=== PATIENT | female | born 1960 | race Caucasian/White ===

== ENCOUNTER 2024-08-30 21:39 | Emergency (ER) | payer MEDICARE, BC, SELFPAY ==
--- NOTE | ~2024-08-30 | CT_ITS ---
CT of the Abdomen and Pelvis: Indication: Abdominal pain Technique: 2.5 mm axial scans were obtained through the abdomen and pelvis following intravenous adm inistration of 100 cc of Omnipaque 350. Dose reduction technique was used on this scan by utilizing a utomated exposure control and iterative reconstruction technique. The dose-length product (DLP) was 8 29.70 mGy-cm. Findings: Scans through the lung bases are unremarkable. The liver, spleen, pancreas, adrenals and kidneys are within normal limits. Gallstones are present wi thin distended gallbladder with mild gallbladder wall thickening. No evidence of aortic aneurysm. No lymphadenopathy. No bowel obstruction or bowel wall thickening. There is no evidence to suggest acute appendicitis. Images through the pelvis were performed. Urinary bladder unremarkable. No pelvic mass seen. No ascit es. Impression: Cholelithiasis. Associated gallbladder wall thickening is suspicious for acute cholecystitis. Correla te clinically. Consider HIDA scan as indicated. Reviewed, dictated and finalized at location . Impression: Cholelithiasis. Associated gallbladder wall thickening is suspicious for acute cholecystitis. Correlate clinically. Consider HIDA scan as indicated.
--- OUTSIDE RECORDS SUMMARY | 2024-08-30 21:41 | XMS_ITS ---
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 Name Role Phone ABDULKADIR ST Primary Care Provider [phone] Allergies Allergen (clinical drug ingredient) Drug/Non Drug Allergy documented on EMR Reaction Allergy Type Onset Date Status penicillin V Penicillin V Potassium Unknown Drug Allergy Active Sulfamethoxazole Unknown Drug Allergy Active Results Component Value Reference Range Notes CT CHEST WO (Not yet reviewe d by provider) Interpretation: Performing Lab: Notes/Report: EXAM: CT OF THE CHEST WITHOUT INTRAVENOUS CONTRAST, 30-APR-2024, 05:01 AM MST, 1080 IMAGES COMPARISON: 02 Apr 2024, 08:35 AM MST; CT; CARDIAC - CORONARY CALCIUM SCORING INDICATIONS: Abnormal findings on dx imaging of heart and cor circ TECHNIQUE: Multidetector CT was performed as specified in the exam title above.Multiplanar reformatted images were created. This exam uses dose modulation, interval reconstruction, and/or weight-based dosing when appropriate to reduce radiation dose to as low as reasonably achievable. FINDINGS: Limited evaluation without enhancement. LUNGS: 3 mm right lower lobe nodule series 3, 82 5 mm right lower lobe nodule series 3 image 78.biapical pleural parenchymal scarring.Mild lower lobe bronchiectasis without adjacent inflammation.Recommend annual follow up. VASCULATURE: Unremarkable.No aortic aneurysm. MEDIASTINUM: Unremarkable.No mass or bulky adenopathy. CARDIAC: Unchanged mild coronary calcification. PLEURA: Unremarkable.No pleural effusion. CHEST WALL AND AXILLA: Breast implants unchanged appearance with separation of the inner lining. VISUALIZED UPPER ABDOMEN: Unremarkable.Limited images of the upper abdomen are unremarkable. THYROID: Unremarkable.No nodule meeting criteria for follow-up.In patients with no thyroid disease, nodules less than 1 cm in size are highly likely to be benign and do not require follow-up imaging routinely. BONES: Unremarkable.No acute findings. TUBES AND LINES: None. OTHER: Unremarkable. IMPRESSION: 1.3 mm and 5 mm right lower lobe nodules. 2.Mild lower lobe bronchiectasis. 3.Biapical pleural parenchymal scarring. 4.Mild coronary artery calcification, unchanged. 5.Chronic Breast implant changes with separation of the inner lining. RECOMMENDATIONS: 1.Lungs: Annual follow up recommended Performed at [facility], and electronically signed by NIKOLAI BEAR MD, EXAM: CT OF THE CHEST WITH OUT INTRAVENOUS CONTRAST, 30-APR-2024, 05:01 AM [facility], 1080 IMAGES COMPARISON: 02 Apr 2024, 08:35 A M [facility]; CT; CARDIAC - CORONARY CALCIUM SCORING INDICATIONS: Abnormal findings on dx imaging of heart and cor circ TECHNIQUE: Multidetector CT was performed as specified in the exam title above.Multiplanar reformatted images were created. This exam uses dose modulation, interval reconstruction, and/or weight-based dosing when appropriate to reduce radiation dose to as low as reasonably achievable. FINDINGS: Limited evaluation w ithout enhancement. LUNGS: 3 mm right lower lob e nodule series 3, 82 5 mm right lower lobe nodule series 3 image 78.biapical pleural parenchymal scarring.Mild lower lobe bronchiectasis without adjacent inflammation.Recommend annual follow up. VASCULATURE: Unremarkable.No aort ic aneurysm. MEDIASTINUM: Unremarkable.No mass or bulky adenopathy. CARDIAC: Unchanged mild coron norma calcification. PLEURA: Unremarkable.No pleu ral effusion. CHEST WALL AND AXILLA: Breast implants unch anged appearance with separation of the inner lining. VISUALIZED UPPER ABDOMEN: Unremarkable.Limited images of the upper abdomen are unremarkable. THYROID: Unremarkable.No nodu le meeting criteria for follow-up.In patients with no thyroid disease, nodules less than 1 cm in size are highly likely to be benign and do not require follow-up imaging routinely. BONES: Unremarkable.No acute findings. TUBES AND LINES: None. OTHER: Unremarkable. IMPRESSION: 1.3 mm and 5 mm righ t lower lobe nodules. 2.Mild lower lobe bronchiectasis. 3.Biapical pleural p arenchymal scarring. 4.Mild coronary bhanu ry calcification, unchanged. 5.Chronic Breast imp lant changes with separation of the inner lining. RECOMMENDATIONS: 1.Lungs: Annual foll ow up recommended Reason For Referral Reason evaluate and treat Diagnosis 1 Elevated coronary ar joshua calcium score (R93.1) Referral Organization [facility] Family Practic e Referring Provider First Name ABDULKADIR Referring Provider Last Name DENIS Referring Provider Speciality Family [facility] ctice Referred Provider [place] Referred Provider Specialty Cardiology Referral Priority Routine REASON FOR VISIT ongoing eval TSH and thyroid med changes. Televideo FT, TeleVIDEO Medical Visit Medications Medication SIG (Take, Route, Frequency, Duration) Notes Start Date End Date Status Prevnar 13 - as directed Intramuscular for 1 days Active Shingrix 50 MCG as directed Intramuscular for 1 dose Active Rosuvastatin Calcium 5 MG TAKE ONE TABLE T BY MOUTH ONE TIME DAILY for 90 Active Repatha SureClick 140 MG/ML 140 mg Subcu taneous every 2 weeks for 90 days 04/25/2024 Active Losartan Potassium 50 MG 1 tablet Orally Once a day Active Levothyroxine Sodium 88 MCG TAKE ONE TAB LET BY MOUTH EVERY OTHER DAY in THE MORNING Active Pantoprazole Sodium 40 MG TAKE ONE TABLE T BY MOUTH ONE TIME DAILY for 90 Not-Taking Levothyroxine Sodium 75 MCG 1 tablet in the morning on an empty stomach every other day for 90 days Active hydroCHLOROthiazide 12.5 MG 1 capsule in the morning Orally daily prn Not-Taking Ezetimibe 10 MG 1 tablet Orally Once a day for 90 days 04/25/2024 Active CoQ10 100 MG 3 tabs daily Orally Active guaiFENesin-Codeine 100-10 MG/5ML 10 mL as needed Orally every 4 hrs for 4 days 03/10/2024 Active Zithromax Z-Howie 250 MG 2 tablets on the first day, then 1 tablet daily for 4 days Orally Once a day for 5 day(s) Active Problems Problem Type SNOMED Code ICD Code Onset Dates Problem Status W/U Status Risk Notes Problem Bronchiectasis (46019760) Bronchiectasis (J47.9) Active confirmed Encounters Encounter Location Date Provider Diagnosis [facility] [address] [place], [place] [phone] 04/24/[address] Stage 3a chronic kid lois disease N18.31 ; Hyperlipidemia, unspecified hyperlipidemia type E78.5 ; Hypothyroidism, unspecified type E03.9 ; Elevated coronary artery calcium score R93.1 ; Bronchiectasis J47.9 and Statin intolerance Z78.9 Assessments Encounter Date Diagnosis (ICD Code) Assessment Notes Treatment Notes Treatment Clinical Notes Section Notes 04/24/2024 Stage 3a chronic kidney disease (ICD-10 - N18.31) The patient was advised to avoid Advil, Aleve, and ibuprofen due to their kidney condition. Control blood pressure.Proper control of cholesterol.Decrea se salt intake.Monitor for swelling of legs.Monitor protein intake.Push fluids.Recheck Renal function in 3 mos. s 04/24/2024 Hyperlipidemia, unspecified hyperlipidemia type (ICD-10 - E78.5) CCS= 395 Low cholesterol diet.Increase exercise as tolerated.Complian ce with medications.Check fasting lipids and CMP in 3 mos or when indicated. s 04/24/2024 Hypothyroidism, unspecified type (ICD-10 - E03.9) Continue current meds.Monitor for signs and sx of hypothyroidism.Iraida ck TSH as indicated.To ER if signs/sx of thyrotoxicosis s 04/24/2024 Elevated coronary artery calcium score (ICD-10 - R93.1) The patient was advised to see a financial institution president and to undergo a CT scan of the lungs and a carotid artery ultrasound. The patient was also prescribed Zetia and Repatha. s 04/24/2024 Bronchiectasis (ICD-10 - J47.9) noted on CT Cardiac score. check CT chest to further eval lungs. RTO to review results s 04/24/2024 Statin intolerance (ICD-10 - Z78.9) statin induced myalgias Patient has CCS= 395 LDL= 114 recommend PCSK9 inhibitor for LDL goal <<70 s Plan Of Treatment Medication Medication Name Sig Start Date Stop Date Notes Repatha SureClick 140 MG/ML 140 mg Subcu taneous every 2 weeks for 90 days 04/25/2024 Levothyroxine Sodium 88 MCG TAKE ONE TAB LET BY MOUTH EVERY OTHER DAY in THE MORNING Levothyroxine Sodium 75 MCG 1 tablet in the morning on an empty stomach every other day for 90 days Ezetimibe 10 MG 1 tablet Orally Once a day for 90 days 04/25/2024 Treatment Notes Assessment Notes Stage 3a chronic kidney disease The patient was advised to avoid Advil, Aleve, and ibuprofen due to their kidney condition. Control blood pressure.Proper control of cholesterol.Decrease salt intake.Monitor for swelling of legs.Monitor protein intake.Push fluids.Recheck Renal function in 3 mos. Hyperlipidemia, unspecified hyperlipidemia type CCS= 395 Low cholesterol diet.Increase exercise as tolerated.Compliance with medications.Check fasting lipids and CMP in 3 mos or when indicated. Hypothyroidism, unspecified type Continu e current meds.Monitor for signs and sx of hypothyroidism.Check TSH as indicated.To ER if signs/sx of thyrotoxicosis Elevated coronary artery calcium score The patient was advised to see a financial institution president and to undergo a CT scan of the lungs and a carotid artery ultrasound. The patient was also prescribed Zetia and Repatha. Bronchiectasis noted on CT Cardiac score. check CT chest to further eval lungs. RTO to review results Statin intolerance statin induced myalgias Patient has CCS= 395 LDL= 114 recommend PCSK9 inhibitor for LDL goal <<70 Pending Test Test Name Order Date CT CHEST WO 04/24/2024 US CAROTID DUPLEX 04/24/2024 Referrals Referral Date Details 04/25/2024 04/25/2024, evaluate and treat, [place] Next Appt Details Follow Up: 2 Weeks, Reason: review DI Progress Notes * Kristan ESPINALOB:1960 (64 yo F)Acc No.[id number]:04/24/2024 Progress Notes Patient: Ani ROTH Provider: Michelle St :1960 A ge:64 Y S ex:Female Date:04/24/2024 Address:[address], [place], [id number] Subjective: * Chief Complaints: * 1 . ongoing eval TSH and thyroid med changes. Televideo FT. 2. TeleVIDEO Medical Visit. * HPI: A ctive Issues/Events: The patient presented with a slightly elevated creatinine level and a slightly low GFR. The thyroid was reported to be perfect with a TSH at 1.8. The patient had a cardiac calcium score of 395, indicating a significant risk category. The patient had been taking rosuvastatin, but had stopped taking it for over six weeks due to running out. The patient had been experiencing muscle aches with the statin. The patient also reported a strange feeling in their legs during sleep, described as sludge . The patient had a history of foot surgery and was scheduled for another one. The patient also had a history of sleep apnea and had recently undergone a sleep study. The patient's creatinine was still elevated at 1.10, indicating a dehydration issue. The GFR was low at 56, indicating stage 3A chronic kidney disease. * ROS: G eneral/Constitutional: Change in appetite d enies. C hills d enies. F ever d enies. O phthalmologic: Blurred vision d enies. D ischarge d enies. E ye Pain d enies. E NT: Decreased hearing d enies. S ore throat d enies. Swollen glands d enies. E ndocrine: Cold intolerance d enies. E xcessive thirst d enies. H eat intolerance d enies. W eight loss d enies. R espiratory: Cough d enies. S hortness of breath at rest d enies. S hortness of breath with exertion d enies. W heezing d enies. C ardiovascular: Chest pain at rest d enies. C hest pain with exertion denies. I rregular heartbeat d enies. S hortness of breath d enies. G astrointestinal: Abdominal pain d enies. D iarrhea d enies. N ausea d enies. V omiting d enies. G enitourinary: Blood in urine d enies. D ifficulty urinating d enies. F requent urination d enies. M usculoskeletal: Painful joints d enies. W eakness d enies. S kin: Dry skin d enies. I tching d enies. R jannet d enies. N eurologic: Dizziness d enies. F ainting d enies. H eadache denies. * Medical History: S easonal allergies, Essential hypertension, Hyperlipidemia, unspecified hyperlipidemia type, Hypothyroidism, unspecified type, Osteopenia, unspecified location. * Family History: sister - sleep apnea daughter - sleep apnea. * Medications: T aking Shingrix 50 MCG Suspension Reconstituted as directed Intramuscular , Taking Prevnar 13 - Suspension as directed Intramuscular , Taking Losartan Potassium 50 MG Tablet 1 tablet Orally Once a day , Taking Rosuvastatin Calcium 5 MG Tablet TAKE ONE TABLET BY MOUTH ONE TIME DAILY , Taking CoQ10 100 MG Capsule 3 tabs daily Orally , Taking Zithromax Z-Howie 250 MG Tablet 2 tablets on the first day, then 1 tablet daily for 4 days Orally Once a day , Taking guaiFENesin-Codeine 100-10 MG/5ML Solution 10 mL as needed Orally every 4 hrs , Taking Levothyroxine Sodium 75 MCG Tablet 1 tablet in the morning on an empty stomach every other day , Taking Levothyroxine Sodium 88 MCG Tablet TAKE ONE TABLET BY MOUTH EVERY OTHER DAY in THE MORNING , Not- Taking/PRN hydroCHLOROthiazide 12.5 MG Capsule 1 capsule in the morning Orally daily prn , Not-Taking/PRN Pantoprazole Sodium 40 MG Tablet Delayed Release TAKE ONE TABLET BY MOUTH ONE TIME DAILY , Medication List reviewed and reconciled with the patient * Allergies: P enicillin V Potassium: Allergy, Sulfamethoxazole: Allergy. Objective: * Vitals: * Examination: G eneral Examination: GENERAL APPEARANCE: w ell developed, well nourished, in no acute distress. HEAD: n ormocephalic, atraumatic. NECK/THYROID: full range of motion. LUNGS: no labored breathing. PSYCH: alert, oriented. Assessment: * Assessment: 1. H yperlipidemia, unspecified hyperlipidemia type - E78.5 2 . S tage 3a chronic kidney disease - N18.31 (Primary) 3 . H ypothyroidism, unspecified type - E03.9 4 . E levated coronary artery calcium score - R93.1 5 . Bronchiectasis - J47.9 6 . S tatin intolerance - Z78.9 s Plan: * Treatment: 2. H yperlipidemia, unspecified hyperlipidemia type Start Ezetimibe Tablet, 10 MG, 1 tablet, Orally, Once a day, 90 days, 90 Tablet, Refills 3; S tart Repatha SureClick Solution Auto-injector, 140 MG/ML, 140 mg, Subcutaneous, every 2 weeks, 90 days, 6, Refills 3. Notes: CCS= 395 Low cholesterol diet.Increase exercise as tolerated.Compliance with medications.Check fasting lipids and CMP in 3 mos or when indicated. 3. H ypothyroidism, unspecified type Refill Levothyroxine Sodium Tablet, 75 MCG, 1 tablet in the morning on an empty stomach every other day, 90 days, 45, Refills 3; C fabieninue Levothyroxine Sodium Tablet, 88 MCG, TAKE ONE TABLET BY MOUTH EVERY OTHER DAY in THE MORNING. Notes: Continue current meds.Monitor for signs and sx of hypothyroidism.Check TSH as indicated.To ER if signs/sx of thyrotoxicosis 4. E levated coronary artery calcium score I maging: US CAROTID DUPLEX Notes: The patient was advised to see a financial institution president and to undergo a CT scan of the lungs and a carotid artery ultrasound. The patient was also prescribed Zetia and Repatha. Referral To:[facility] Reason:evaluate and treat 5. B ronchiectasis I maging: CT CHEST WO (Performed Date - 04/30/2024) Notes: noted on CT Cardiac score. check CT chest to further eval lungs. RTO to review results 6. S tatin intolerance Notes: statin induced myalgias Patient has CCS= 395 LDL= 114 recommend PCSK9 inhibitor for LDL goal <<70 * Follow Up: 2 Weeks (Reason: review DI) * * Electronic signature of ABDULKADIR ST M.D. on 08/30/2024 at 07:41 PM [facility] Sign off status: Pending * Provider: Michelle St Date: 0 04/24/2024 Generated for Josseline do/Dimas/Femi on: 0 08/30/2024 07:41 PM [facility] History and Physical Notes * HPI (History of Present Illness) Category Sub-Category Detail Notes Category Not es Active Issues/Events The patient presented with a slightly elevated creatinine level and a slightly low GFR. The thyroid was reported to be perfect with a TSH at 1.8. The patient had a cardiac calcium score of 395, indicating a significant risk category. The patient had been taking rosuvastatin, but had stopped taking it for over six weeks due to running out. The patient had been experiencing muscle aches with the statin. The patient also reported a strange feeling in their legs during sleep, described as sludge . The patient had a history of foot surgery and was scheduled for another one. The patient also had a history of sleep apnea and had recently undergone a sleep study. The patient's creatinine was still elevated at 1.10, indicating a dehydration issue. The GFR was low at 56, indicating stage 3A chronic kidney disease. Examination Category Sub-Category Detail Notes Category Not es General Examination GENERAL APPEARANCE: well dev eloped, well nourished, in no acute distress HEAD: normocephalic, atrau matic NECK/THYROID: full range of motion LUNGS: no labored breathing PSYCH: alert, oriented Consultation Request Notes Referral Date Referring Provider Referred Provider Not es 04/25/[address] Danielle evaluate and treat
--- OUTSIDE RECORDS SUMMARY | 2024-08-30 21:41 | XMS_ITS ---
Author Organization [facility] Address [address] [place], [place] [phone] Care Team Providers Care Manager Commodities Name Role Phone ABDULKADIR BARRIOS Primary Care Provider REASON FOR VISIT lab bill - email received Encounters Encounter Location Date Provider Diagnosis [facility] [address] [place], [place] [phone] 05/27/2024 ABDULKADIR BARRIOS Plan Of Treatment No Information Progress Notes * Kristan ESPINALOB:1960 (64 yo F)Acc No.[id number]:05/27/2024 Patient: Ani ROTH :1960 A ge:64 Y S ex:Female Address:[address] [place], [address] * true * Date: Generated for Josseline do/Jug/eTransmitting on: 0 08/30/2024 07:41 PM MST
--- OUTSIDE RECORDS SUMMARY | 2024-08-30 21:41 | XMS_ITS | Clinical Summary ---
Author Organization [facility] Address [address] [place] [address] Care Team Providers Care Help Desk Intern Name Role Phone Unavailable Primary Care Provider Unavailabl e Allergies Active Allergy Reactions Criticality Noted Date Comments Penicillins Anaphylaxis High 07/27/2016 Sulfa (Sulfonamide Antibiotics) Anaphylaxis High Medications levothyroxine (SYNTHROID, UNITHROID) 75 mcg tablet Take 75 mcg by mouth 1 (one) time each day before breakfast. 88MCG rotated every other day Active azilsartan med-chlorthalid one (Edarbyclor) 40-12.5 mg tablet Take 40 mcg by mouth 1 (one) time each day. Takes everyother day Active rosuvastatin (CRESTOR) 5 mg tablet Take 5 mg by mouth 1 (one) time each day. Active Active Problems No known active problems Social History Tobacco Use Types Packs/Day Years Used Date Smoking Tobacco: Never Smokeless Tobacco: Never Alcohol Use Standard Drinks/Week Comments Yes 0 (1 standard drink = 0.6 oz pur e alcohol) On occasion Comments Unknown Sex and Gender Information Value Date Recorded Sex Assigned at Not on file Legal Sex Female 7:17 PM PST Gender Identity Not on file Sexual Orientation Not on file Plan of Treatment Health Maintenance Due Date Last Done Comments Dental Prophylaxis 12/24/2020 06/22/2020, 0 12/17/2019, 05/26/2019, Additional history exists Meningococcal B Vaccine Aged Out No l onger eligible based on patient's age to complete this topic Procedures Procedure Name Priority Date/Time Associated Diagnosis Comments PROPHYLAXIS - ADULT Routine 06/22/2020 2:00 PM MST from Last 3 Months or Most Recently Relevant to Health Maintenance Insurance [facility]
[2024-08-30 21:42] VITALS: BP 161/55; PULSE 89; RESP 16; TEMP 36.8; O2SAT 94
--- OUTSIDE RECORDS SUMMARY | 2024-08-30 21:42 | XMS_ITS ---
Author Organization [facility] Address [address] [place], [place] [phone] Care Team Providers Care Immigration Guard Name Role Phone ABDULKADIR BARRIOS Primary Care Provider Allergies Allergen (clinical drug ingredient) Drug/Non Drug Allergy documented on EMR Reaction Allergy Type Onset Date Status penicillin V Penicillin V Potassium Unknown Drug Allergy Active Sulfamethoxazole Unknown Drug Allergy Active REASON FOR VISIT rx Medications Medication SIG (Take, Route, Fr equency, Duration) Notes Start Date End Date Status Ezetimibe 10 MG 1 tablet Orally Once a day for 90 days 04/25/2024 Active Praluent 75 MG/ML INJECT 75 MG (1 ML) Subcutaneous EVERY 2 WEEKS for 30 04/28/2024 Active Encounters Encounter Location Date Provider Diagnosis [facility] [address] [place], [place] [phone] 04/28/2024 ABDULKADIR BARRIOS Hyperlipidemia, unspecified hyperlipidemia type E78.5 Assessments Encounter Date Diagnosis (ICD Code) Assessment Notes Treatment Notes Treatment Clinical Notes Section Notes 04/28/2024 Hyperlipidemia, unspecified hyperlipidemia type (ICD-10 - E78.5) Plan Of Treatment Medication Medication Name Sig Start Date Stop Date Notes Ezetimibe 10 MG 1 tablet Orally Once a day for 90 days 01/2025 Praluent 75 MG/ML INJECT 75 MG (1 ML) Subcutaneous EVERY 2 WEEKS for 30 04/28/2024 Progress Notes * Kristan ESPINALOB:1960 (64 yo F)Acc No.[id number]:04/28/2024 Patient: Ani ROTH :1960 A ge:64 Y S ex:Female Address[address] [place], [address] * Refills Refill Ezetimibe Tablet, 10 MG, Orally, 90 Tablet, 1 tablet, Once a day, 90 days, Refills=3 Start Praluent Solution Auto-injector, 75 MG/ML, Subcutaneous, 2 Milliliter, INJECT 75 MG (1 ML), EVERY 2 WEEKS, 30, Refills=12 Subjective: * Chief Complaints: * R x * Medical History: * Surgical History: * Hospitalization/Major Diagno stic Procedure: * Medications: * Allergies: P enicillin V Potassium: AllergySulfamethoxazole: Allergyno[Allergies Verified] Objective: * Vitals: * Physical Examination: Assessment: * Assessment: 1. H yperlipidemia, unspecified hyperlipidemia type - E78.5 Plan: * Treatment: * Procedure Codes: * true * Date: Generated for Josseline do/Dimas/Jasonitting on: 0 08/30/2024 07:41 PM MST
--- OUTSIDE RECORDS SUMMARY | 2024-08-30 21:42 | XMS_ITS | Patient Health Record ---
Author Organization [facility] Address [address] [facility] [address] [place], [place] [id number] Care Team Providers Care Personal Development Coach Name Role Phone ABDULKADIR BARRIOS Primary Care [...] 1.Lungs: Annual follow up recommended Performed at [facility], and electronically signed by NIKOLAI BEAR MD, EXAM: CT OF THE CHEST WITH OUT INTRAVENOUS CONTRAST, 30-APR-2024, 05:01 AM [facility], 1080 IMAGES COMPARISON: 02 Apr 2024, 08:35 A M [facility]; CT; CARDIAC - CORONARY CALCIUM SCORING INDICATIONS: [...] without enhancement. LUNGS: 3 mm right lower lob [...] not require follow-up imaging routinely. BONES: Unremarkable.No acut e findings. TUBES AND LINES: None. OTHER: Unremarkable. IMPRESSION: 1.3 mm and 5 mm righ t lower lobe nodules. 2.Mild lower lobe bronchiectasis. 3.Biapical pleural parenchymal scarring. 4.Mild coronary bhanu ry calcification, unchanged. 5.Chronic Breast imp lant changes with separation of the inner lining. RECOMMENDATIONS: 1.Lungs: Annual foll ow up recommended MAMMOGRAM SCREENING DIGITAL BILATERAL (Not yet reviewed by provider) Interpretation: Performing Lab: Notes/Report: EXAM: BILATERAL IMPLANT 2D SCREENING DIGITAL MAMMOGRAPHY WITH 3D BREAST TOMOSYNTHESIS HISTORY: Screening, asymptomatic. Patient is 64 years old and is seen for a screening exam. The patient has a history of implant replacement in 2017 and implants/augmentation in 1988. The patient has no personal history of cancer. The patient has the following family history of breast cancer: mother, at age 70 and niece, at age 43. COMPARISON: The present examination has been compared to a prior imaging study dated 04/13/2022. BREAST DENSITY: There are scattered areas of fibroglandular density FINDINGS: 2D digital mammography with 3D breast tomosynthesis was performed. Bilateral implants are in place. No suspicious masses, groupings of calcifications or areas of nonsurgical architectural distortion are seen. No significant change. IMPRESSION: There is no mammographic evidence of malignancy. ASSESSMENT: BIRADS: 2 - Benign RECOMMENDATION: 1: Routine screening mammography Bilateral in 1 Year PATIENT RISK: Tyrer-Cuzick 10 Year: 5.0%Tyrer-Cuzick Lifetime: 10.2% Average risk (<15% lifetime risk of breast cancer): Annual screening mammography is indicated. For more information go to [email or web address] COMMENTS: Digital Mammography was performed according to the [employer] Standards. COMPUTER-AIDED DETECTION TECHNIQUE (CAD) v8.3.17 was utilized to optimize sensitivity. In compliance with [place]Q[employer] regulations and ACR guidelines, a letter stating the findings of this exam is being sent to your patient. IF ADDITIONAL IMAGING IS REQUIRED, THE PATIENT HAS BEEN INSTRUCTED TO CALL US DIRECTLY FOR AN APPOINTMENT. The patient will receive results via text message or letter. Performed at [facility], and electronically signed by WILIAN OBRIEN MD, EXAM: BILATERAL IMPL ANT 2D SCREENING DIGITAL MAMMOGRAPHY WITH 3D BREAST TOMOSYNTHESIS HISTORY: Screening, asymptomatic. Patient is 64 years old and is seen for a screening exam. The patient has a history of implant replacement in 2017 and implants/augmentation in 1988. The patient has no personal history of cancer. T he patient has the following family history of breast cancer: mother, at age 70 and niece, at age 43. COMPARISON: The pres ent examination has been compared to a prior imaging study dated 04/13/2022. BREAST DENSITY: Ther e are scattered areas of fibroglandular density FINDINGS: 2D digital mammograp hy with 3D breast tomosynthesis was performed. Bilateral implants are in place. No suspici ous masses, groupings of calcifications or areas of nonsurgical architectural distor tion are seen. No significant change. IMPRESSION: There is no mammogra phic evidence of malignancy. ASSESSMENT: BIRADS: 2 - Benign RECOMMENDATION: 1: Routine screening mammography Bilateral in 1 Year PATIENT RISK: Tyrer-Cuzick 10 Year: 5.0%Tyrer-Cuzick Lifetime: 10.2% Average risk (<15% lifetime risk of breast cancer): Annual screening mammography is indicated. For more information go to [email or web address] COMMENTS: Digital Mammography was performed according to the [employer] Standards. COMPUTER-AIDED DETECTION TECHNIQUE (CAD) v8.3.17 was utilized to optimize sensitivity. In compliance with [facility] regulations and ACR guidelines, a letter stating the findings of this exam is being s ent to your patient. IF ADDITIONAL IMAGING IS REQUIRED, THE PATIENT HAS BEEN INSTRUCTED TO CALL US DIRECTLY FOR AN APPOINTMENT. The patient will rec eive results via text message or letter. Stool FIT, Fecal, IA Reviewed date:03/07/2024 06:59:12 PM Interpretation: Normal Performing Lab:[facility] [place], [address], [place], Phone - [phone], Director - [facility] Notes/Report: Clinical Information:SRC:ST Occult Blood, Fecal, IA Negative Negative TSH Rfx on Abnormal to Free T4 Reviewed date:03/07/2024 06:59:12 PM Interpretation: Normal Performing Lab:[facility] [place], [address], [place], Phone - [phone], [facility]Report: TSH 5.950 0.450-4.500 uIU/mL T4,Free (Direct) 1.32 0.82-1.77 ng/dL Comp. Metabolic Panel (14) Reviewed date:03/07/2024 06:59:12 PM Interpretation: Normal Performing Lab:[facility] [place], [address], [employer], Phone - [phone], [facility]Report: Glucose 90 70-99 mg/dL BUN 19 8-27 mg/dL Creatinine 1.17 0.57-1.00 mg/dL eGFR 52 >59 mL/min/1.73 BUN/Creatinine Ratio 16 12-28 Sodium 137 134-144 mmol/L Potassium 4.2 3.5-5.2 mmol/L Chloride 99 96-106 mmol/L Carbon Dioxide, Total 24 20-29 mmol/L Calcium 9.4 8.7-10.3 mg/dL Protein, Total 7.8 6.0-8.5 g/dL Albumin 4.2 3.9-4.9 g/dL Globulin, Total 3.6 1.5-4.5 g/dL Bilirubin, Total 0.6 0.0-1.2 mg/dL Alkaline Phosphatase 37 44-121 IU/L AST (SGOT) 24 0-40 IU/L ALT (SGPT) 16 0-32 IU/L Lipid Panel Reviewed date:03/07/2024 06:59:12 PM Interpretation: Normal Performing Lab:[facility] [place], [address] [place] [address], [employer], Phone - [phone], Director - [facility] Notes/Report: Cholesterol, Total 195 100-199 mg/dL Triglycerides 116 0-149 mg/dL HDL Cholesterol 60 >39 mg/dL VLDL Cholesterol Xavier 21 5-40 mg/dL LDL Chol Calc (NIH) 114 0-99 mg/dL CBC With Differential/Platel et Reviewed date:03/07/2024 06:59:12 PM Interpretation: Normal Performing Lab:[facility] [place], [address], [employer], Phone - [phone], [facility] Notes[facility]Report: WBC 5.3 3.4-10.8 x10E3/uL RBC 4.36 3.77-5.28 x10E6/uL Hemoglobin 13.8 11.1-15.9 g/dL Hematocrit 42.0 34.0-46.6 % MCV 96 79-97 fL MCH 31.7 26.6-33.0 pg MCHC 32.9 31.5-35.7 g/dL RDW 12.4 11.7-15.4 % Platelets 268 150-450 x10E3/uL Neutrophils 50 Not Estab. % Lymphs 33 Not Estab. % Monocytes 11 Not Estab. % Eos 5 Not Estab. % Basos 1 Not Estab. % Neutrophils (Absolute) 2.7 1.4-7.0 x10E3/uL Lymphs (Absolute) 1.7 0.7-3.1 x10E3/uL Monocytes(Absolute) 0.6 0.1-0.9 x10E3/uL Eos (Absolute) 0.3 0.0-0.4 x10E3/uL Baso (Absolute) 0.1 0.0-0.2 x10E3/uL Immature Granulocytes 0 Not Estab. % Immature Grans (Abs) 0.0 0.0-0.1 x10E3/uL Urinalysis, Complete Reviewed date:03/07/2024 06:59:12 PM Interpretation: Normal Performing Lab:[facility] [place], [facility] [place] [address], [place], Phone - [phone], Director - [facility] Notes/Report: Specific Bayard 1.013 1.005-1.030 pH 6.5 5.0-7.5 Urine-Color Yellow Yellow Appearance Clear Clear WBC Esterase Negative Negative Protein Negative Negative/Trace Glucose Negative Negative Ketones Negative Negative Occult Blood Negative Negative Bilirubin Negative Negative Urobilinogen,Semi-Qn 0.2 0.2-1.0 mg/dL Nitrite, Urine Negative Negative Microscopic Examination Micr oscopic follows if indicated. Microscopic Examination See below: Micr oscopic was indicated and was performed. WBC None seen 0 - 5 /hpf RBC None seen 0 - 2 /hpf Epithelial Cells (non renal) None seen 0 - 10 /hpf Casts None seen None seen /lpf Bacteria None seen None seen/Few CT SCREENING CARDIAC SCORE ( Not yet reviewed by provider) Interpretation: Performing Lab: Notes/Report: CT CALCIUM SCORING Patient age: 64 years Gender: Female HISTORY: Hyperlipidemia. COMPARISON: None. TECHNIQUE: No intravenous contrast. Noncontrast prospectively ECG-gated axial imaging. Automated exposure control, adjustment of mA and/or kV according to patient size or iterative reconstruction dose optimization techniques were used. FINDINGS: VISUALIZED MEDIASTINUM: Cardiomegaly. Trace pericardial effusion. Visualized portions of the thoracic aorta are normal in caliber. No adenopathy in the visualized mediastinum. VISUALIZED LUNGS: Dependent atelectasis. Mild bronchiectatic changes bilaterally. UPPER ABDOMEN: Unremarkable. OTHER: Breast implants bilaterally. CORONARY CALCIUM SCORES: Left main coronary artery: 0 Left anterior descending artery: 102 Circumflex artery: 0 Right coronary artery: 293 Total coronary calcium score: 395 IMPRESSION: 1. Total coronary calcium score = 395. Total calcium score is between the 75th and 90th percentile for women between the ages of 65 and 69. Exact calculated percentile is 89%. Findings imply at least moderate atherosclerotic plaque with mild coronary artery disease highly likely and significant narrowings possible. 2. Cardiomegaly. 3. Mild bronchiectatic changes bilaterally. Performed at [facility], and electronically signed by PANDA ROME MD, CT CALCIUM SCORING Patient age: 64 years Gender: Female HISTORY: Hyperlipidemia. COMPARISON: None. TECHNIQUE: No intravenous contrast. Noncontrast prospectively ECG-gated axial imaging. Automated exposure control, adjustment of mA and/or kV according to patient size or iterative reconstruc tion dose optimization techniques were used. FINDINGS: VISUALIZED MEDIASTINUM: Cardiomegaly. Trace pericardial effusion. Visualized portions of the thoracic aorta are normal in caliber. No adenopathy in the visualized mediastinum. VISUALIZED LUNGS: Dependent atelectasis. Mild bronchiectatic changes bilaterally. UPPER ABDOMEN: Unremarkable. OTHER: Breast implan ts bilaterally. CORONARY CALCIUM SCORES: Left main coronary artery: 0 Left anterior descen ding artery: 102 Circumflex artery: 0 Right coronary arter y: 293 Total coronary calci um score: 395 IMPRESSION: 1. Total coronary calcium score = 395. Total calcium score is between the 75th and 90th percentile for women between the ages of 65 and 69. Exact calculated percentile is 89%. Findings imply at le ast moderate atherosclerotic plaque with mild coronary artery disease highly likely and significant narrowings possible. 2. Cardiomegaly. 3. Mild bronchiectat ic changes bilaterally. Reason For Referral Reason evaluate and treat Diagnosis 1 Screen for colon can cer (Z12.11) Referral Organization [facility] Referring Provider First Name ABDULKADIR Referring Provider Last Name DENIS [facility]erred Provider Kwesi Rapp Referred Provider Specialty Gastroentero logy Referral Priority Routine Reason evaluate and treat Diagnosis 1 Snoring (R06.83) Referral Organization [facility] Referring Provider First Name ABDUKLADIR Referring Provider Last Name DENIS Referring Provider Speciality [facility] ctice Referred Provider Alex Iglesias Referred Provider Specialty Sleep Medici ne Referral Priority Routine Reason evaluate and treat Diagnosis 1 Elevated coronary ar joshua calcium score (R93.1) Referral Organization [facility] Referring Provider First Name ABDULKADIR Referring Provider Last Name BARRIOS [facility] Referred Provider [place] Referred Provider Specialty Cardiology Referral Priority Routine Medications Medication SIG (Take, Route, Frequency, Duration) Notes Start Date End Date Status CoQ10 100 MG 3 tabs daily Orally Active guaiFENesin-Codeine 100-10 MG/5ML 10 mL as needed Orally every 4 hrs for 4 days 03/10/2024 Active Zithromax Z-Howie 250 MG 2 tablets on the first day, then 1 tablet daily for 4 days Orally Once a day for 5 day(s) Active Pantoprazole Sodium 40 MG TAKE ONE TABLE T BY MOUTH ONE TIME DAILY for 90 Not-Taking Levothyroxine Sodium 75 MCG 1 tablet in the morning on an empty stomach every other day for 90 days Active hydroCHLOROthiazide 12.5 MG 1 capsule in the morning Orally daily prn Not-Taking Prevnar 13 - as directed Intramuscular for 1 days Active Shingrix 50 MCG as directed Intramuscular for 1 dose Active Rosuvastatin Calcium 5 MG TAKE ONE TABLE T BY MOUTH ONE TIME DAILY for 90 Active Repatha SureClick 140 MG/ML 140 mg Subcu taneous every 2 weeks for 90 days 04/25/2024 Active Levothyroxine Sodium 88 MCG TAKE ONE TAB LET BY MOUTH EVERY OTHER DAY in THE MORNING for 90 Active Losartan Potassium 50 MG 1 tablet Orally Once a day Active Ezetimibe 10 MG 1 tablet Orally Once a day for 90 days 04/25/2024 Active Praluent 75 MG/ML INJECT 75 MG (1 ML) Subcutaneous EVERY 2 WEEKS for 30 04/28/2024 Active Social History Alcohol Screen (Audit-C) Question Answer Notes Did you have a drink contain ing alcohol in the past year? Yes How often did you have a dri nk containing alcohol in the past year? Monthly or less (1 point) How many drinks did you have on a typical day when you were drinking in the past year? 1 or 2 drinks (0 point) How often did you have 6 or more drinks on one occasion in the past year? Never (0 point) Points 1 Interpretation Negative Problems Problem Type SNOMED Code ICD Code Onset Dates Problem Status W/U Status Risk Notes Problem 01973500 Vitamin D deficiency (E55.9) Active confirmed Problem 690143777 Seasonal allergies (J30.2) Active confirmed Problem 296885576 Chronic kidney disease, stage 3 (N18.3) Active confirmed Problem Bronchiectasis (02323547) Bronchiectasis (J47.9) Active confirmed Problem 64183769 Essential hypertension (I10) Active confirmed Problem 91909987 Hyperlipidemia, unspecified hyperlipidemia type (E78.5) Active confirmed Problem 553576178 Osteopenia, unspecified location (M85.80) Active confirmed Problem 38757371 Hypothyroidism, unspecified type (E03.9) Active confirmed Problem 651008103 LPRD (laryngopharyngea l reflux disease) (K21.9) Active confirmed Problem 01385609 Sinusitis, unspecified chronicity, unspecified location (J32.9) Active confirmed Problem 60842814 Atrophic vaginitis (N95.2) Active confirmed Problem Stage 3a chronic kidney disease (N18.31) Active confirmed Vital Signs Heart Rate 64 /min 02/08/2024 Temperature 98.4 degrees Fahrenheit 02/08/2024 Blood pressure diastolic 85 mm Hg 02/08/2024 Oximetry 95 % 02/08/2024 Height 67 in 02/08/2024 Blood pressure systolic 125 mm Hg 02/08/2024 Weight 166.8 lbs 02/08/2024 BMI 26.12 kg/m2 02/08/2024 Encounters Encounter Location Date Provider Diagnosis Formerly [facility] [address] [place], [place] [phone] 02/08/2024 ABDULKADIR BARRIOS Encounter for annual general medical examination without abnormal findings in adult Z00.00 ; Screening for breast cancer Z12.31 ; Screening for osteoporosis Z13.820 ; Screen for colon cancer Z12.11 ; Screening for skin cancer Z12.83 ; Screening for glaucoma Z13.5 ; Need for vaccination Z23 ; Encounter for behavioral health screening Z13.30 ; Screening for other and unspecified cardiovascular conditions Z13.6 and Counseling regarding advanced care planning and goals of care Z71.89 Formerly [facility] [address] [place], [place] [id number] 03/07/2024 ABDULKADIR BARRIOS Acute maxillary sinusitis, unspecified J01.00 ; Acute cough R05.1 ; Hyperlipidemia, unspecified hyperlipidemia type E78.5 ; Hypothyroidism, unspecified type E03.9 and Stage 3a chronic kidney disease N18.31 Formerly [facility] [address] [place], [place] [id number] 04/24/2024 ABDULKADIR BARRIOS Stage 3a chronic kid lois disease N18.31 ; Hyperlipidemia, unspecified hyperlipidemia type E78.5 ; Hypothyroidism, unspecified type E03.9 ; Elevated coronary artery calcium score R93.1 ; Bronchiectasis J47.9 and Statin intolerance Z78.9 Former[facility] [address] [place], [place] [id number] 02/08/2024 ABDULKADIR BARRIOS Vitamin D deficiency E55.9 ; Myalgia, multiple sites M79.18 and Snoring R06.83 [facility] [address] [place], [place] [id number] 03/06/2024 ABDULKADIR BARRIOS [facility] [address] [place], [place] [phone] 03/10/2024 ABDULKADIR BARRIOS Hypothyroidism, unspecified type E03.9 [facility] [address] [place], [place] [id number] 04/28/2024 ABDULKADIR BARRIOS Hyperlipidemia, unspecified hyperlipidemia type E78.5 [facility] [address] [place], [place] [id number] 05/27/2024 ABDULKADIR BARRIOS [facility] [address] [place], [place] [id number] 04/21/2024 ABDULKADIR BARRIOS Abnormal TSH R79.89 and Stage 3a chronic kidney disease N18.31 Assessments Encounter Date Diagnosis (ICD Code) Assessment Notes Treatment Notes Treatment Clinical Notes Section Notes 04/28/2024 Hyperlipidemia, unspecified hyperlipidemia type (ICD-10 - E78.5) 04/24/2024 Hyperlipidemia, unspecified hyperlipidemia type (ICD-10 - E78.5) CCS= 395 Low cholesterol diet.Increase exercise as tolerated.Complian ce with medications.Check fasting lipids and CMP in 3 mos or when indicated. s 04/24/2024 Stage 3a chronic kidney disease (ICD-10 - N18.31) The patient was advised to avoid Advil, Aleve, and ibuprofen due to their kidney condition. Control blood pressure.Proper control of cholesterol.Decrea se salt intake.Monitor for swelling of legs.Monitor protein intake.Push fluids.Recheck Renal function in 3 mos. s 03/10/2024 Hypothyroidism, unspecified type (ICD-10 - E03.9) 04/21/2024 Abnormal TSH (ICD-10 - R79.89) 04/21/2024 Stage 3a chronic kidney disease (ICD-10 - N18.31) 02/08/2024 Encounter for annual general medical examination without abnormal findings in adult (ICD-10 - Z00.00) Get fasting labs. Increase exercise, as tolerated. Monitor cholesterol and sugar intake. Proper sleep. 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 02/08/2024 Screening for breast cancer (ICD-10 - Z12.31) UTD Mammogram. schedule for 03/202503/07/2024 Acute maxillary sinusitis, unspecified (ICD-10 - J01.00) Antibiotics as above. Mucinex OTC. Neti Pot only if tolerated. Push fluids. Rest. RTO if not improved or if worsening. 02/08/2024 Vitamin D deficiency (ICD-10 - E55.9) 02/08/2024 Myalgia, multiple sites (ICD-10 - M79.18) 03/07/2024 Acute cough (ICD-10 - R05.1) Inhaler if needed. Push fluids. Rest. Caution with possible sedation on Codeine cough syrup; no driving or operating machinery while taking it. RTO if not improved or if worsening 02/08/2024 Snoring (ICD-10 - R06.83) 02/08/2024 Screening for osteoporosis (ICD-10 - Z13.820) UTD on DEXA 04/24/2024 Hypothyroidism, unspecified type (ICD-10 - E03.9) Continue current meds.Monitor for signs and sx of hypothyroidism.Iraida ck TSH as indicated.To ER if signs/sx of thyrotoxicosis s 04/24/2024 Elevated coronary artery calcium score (ICD-10 - R93.1) The patient was advised to see a wholesale buyer and to undergo a CT scan of the lungs and a carotid artery ultrasound. The patient was also prescribed Zetia and Repatha. s 02/08/2024 Screen for colon cancer (ICD-10 - Z12.11) Get FIT Get colonoscopy when due 03/07/2024 Hyperlipidemia, unspecified hyperlipidemia type (ICD-10 - E78.5) check CCS Low cholesterol diet.Increase exercise as tolerated.Complian ce with medications.Check fasting lipids and CMP in 3 mos or when indicated. 03/07/2024 Hypothyroidism, unspecified type (ICD-10 - E03.9) Continue current meds.Monitor for signs and sx of hypothyroidism.Iraida ck TSH as indicated.To ER if signs/sx of thyrotoxicosis 02/08/2024 Screening for skin cancer (ICD-10 - Z12.83) Daily use of sunscreen. 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 04/24/2024 Bronchiectasis (ICD-10 - J47.9) noted on CT Cardiac score. check CT chest to further eval lungs. RTO to review results s 04/24/2024 Statin intolerance (ICD-10 - Z78.9) statin induced myalgias Patient has CCS= 395 LDL= 114 recommend PCSK9 inhibitor for LDL goal <<70 s 02/08/2024 Screening for glaucoma (ICD-10 - Z13.5) Annual exam with admission discharge rn. 03/07/2024 Stage 3a chronic kidney disease (ICD-10 - N18.31) Continue to push fluids daily and avoid NSAIDs. Schedule an appt with nephrology. Pt stated she will do so. Advised that if she doesn't get in the next 3 months, then recheck labs. 02/08/2024 Need for vaccination (ICD-10 - Z23) Annual flu shot. [id number] at age 64. Asdtgyhdv23 1 year after Qzorelf43. Can get Shingrix at the pharmacy. ... UTD on Shingrix. 02/08/2024 Encounter for behavioral health screening (ICD-10 - Z13.30) Screening for alcoholism: No alcohol abuse identified. If any alcohol use, practice moderation. .... AUDIT-C score = 3. Recommendation made to decrease alcohol consumption. === Screening for depression: No significant depression identified. If any depression sx develop, notify me immediately, or to ER/call 911 immediately if severe. 02/08/2024 Screening for other and unspecified cardiovascular conditions (ICD-10 - Z13.6) Intensive behavioral counseling to promote a healthy diet, exercise as tolerated, managing stress, compliance with cardiovascular treatments, and monitoring for sx of any cardiovascular and diet-related chronic diseases. 02/08/2024 Counseling regarding advanced care planning and goals of care (ICD-10 - Z71.89) Advance care planning including the explanation and discussion of advance directives such as standard forms (with completion of such forms, when performed), by the physician or other qualified health career development facilitator; 30 minutes, [id number] with the patient, family member(s), and/or surrogate. ... Advance care planning including advance directives standard forms already completed by patient. 02/08/2024 Other Plan Of Treatment Pending Test Test Name Order Date CT CHEST WO 04/24/2024 CT SCREENING CARDIAC SCORE 03/07/2024 DEXA AXIAL SKELETON WITH VERTEBRAL ASSES SMENT 12/15/2020 DEXA AXIAL SKELETON WITH VERTEBRAL ASSES SMENT 05/28/2018 DEXA BONE DENSITY AXIAL SKELETON 022 MAMMOGRAM SCREENING DIGITAL BILATERAL MAMMOGRAM SCREENING DIGITAL BILATERAL MAMMOGRAM SCREENING DIGITAL BILATERAL US CAROTID DUPLEX 04/24/2024 Phosphorus, Serum 02/08/2024 Magnesium, Serum 02/08/2024 EBV Early Antigen Ab, IgG 06/05/2019 Creatine Kinase,Total,Serum 05/28/2018 Creatine Kinase,Total,Serum 02/08/2024 Urinalysis, Routine 05/28/2018 Urinalysis, Complete 05/29/2019 Urinalysis, Complete 03/23/2022 CBC With Differential/Platelet 2 CBC With Differential/Platelet 0 CBC With Differential/Platelet 9 Coccidioides Abs, IgG/IgM, EIA 0 Stool FIT, Fecal, IA 05/29/2019 Stool FIT, Fecal, IA 03/23/2022 Stool FIT, Fecal, IA 03/01/2022 EBV Acute Infection Antibodies 0 Lipid Panel 05/29/2019 Lipid Panel 05/28/2018 Lipid Panel 03/23/2022 Comp. Metabolic Panel (14) 03/23/2022 Comp. Metabolic Panel (14) 05/28/2018 Comp. Metabolic Panel (14) 06/05/2019 Comp. Metabolic Panel (14) 05/29/2019 TSH Rfx on Abnormal to Free T4 0 TSH Rfx on Abnormal to Free T4 9 TSH Rfx on Abnormal to Free T4 2 MAMMOGRAM 3D DIGITAL SCREENING BILATERAL 12/15/2020 MAMMOGRAM 3D DIGITAL SCREENING BILATERAL 05/28/2018 Vitamin D, 25-Hydroxy, Total 02/08/2024 ECG 02/08/2024 Future Test Test Name Order Date Comprehensive Metabolic Panel 03/30/2021 Insurance Providers Payer Name Payer Address Payer Phone Subscriber Number Group Number Insured Name Patient Relationship to Insured Coverage Start Date Coverage End Date Medicare [address] [place] [address] [id number] EusebioAni michaels Self - patient is the insured [facility] [address] [place] [address] [id number] Eusebiobrando Ani Self - patient is the insured Medical (General) History Medical History History ICD Code Seasonal allergies Essential hypertension Hyperlipidemia, unspecified hyperlipidem ia type Hypothyroidism, unspecified type Osteopenia, unspecified location Surgical History Surgery Date(Month/Year) Open heart surgery for AF Hospitalization History Reason Date(Month/Year)
--- OUTSIDE RECORDS SUMMARY | 2024-08-30 21:42 | XMS_ITS | Referral Summary ---
Author Organization [facility] Address [address] [place] [address] Phone [phone] Care Team Providers Care Family Day Care Worker Name Role Phone Pcp, No Primary Care Provider Unavailabl e Social History Tobacco Use Types Packs/Day Years Used Date Smoking Tobacco: Never Assessed Comments Unknown Sex and Gender Information Value Date Recorded Sex Assigned at Not on file Legal Sex Female 3:20 PM EDT Gender Identity Not on file Sexual Orientation Not on file Plan of Treatment Not on file Care Teams Family Day Care Worker Relationship Specialty Start Date End Date NO PCP PCP - General 07/02/20
--- OUTSIDE RECORDS SUMMARY | 2024-08-30 21:42 | XMS_ITS | Encounter Summary ---
Author Organization [facility] Address [address] [place] [address] Care Team Providers Care Ankle Patch Molder Name Role Phone Unavailable Primary Care Provider Unavailabl e Prior Encounters Date Type Department Care Team Description 06/22/2020 Travel 06/22/2020 2:00 PM MST Office Visit [facility] [address] [place] [address] Demario Moran DMD 05/05/2019 Converted CPS Chart Documents [facility] [address] [place] [address] <No scans attached> 05/05/2019 Converted 13x Documents [facility] [address] [place] [address] <No scans attached> Plan of Treatment Not on file Procedures Procedure Name Priority Date/Time Associated Diagnosis Comments PROPHYLAXIS - ADULT Routine 06/22/2020 2 :00 PM MST INTRAORAL PHOTO Routine 06/22/2020 2:00 PM MST INTRAORAL PHOTO Routine 06/22/2020 2:00 PM MST INTRAORAL PHOTO Routine 06/22/2020 2:00 PM MST INTRAORAL PHOTO Routine 06/22/2020 2:00 PM MST BITEWINGS - FOUR RADIOGRAPHIC IMAGES Routine 06/22/2020 2:00 PM MST ADDITIONAL X-RAY Routine 06/22/2020 2:00 PM MST ADDITIONAL X-RAY Routine 06/22/2020 2:00 PM MST ADDITIONAL X-RAY Routine 06/22/2020 2:00 PM MST ADDITIONAL X-RAY Routine 06/22/2020 2:00 PM MST ADDITIONAL X-RAY Routine 06/22/2020 2:00 PM MST SINGLE X-RAY Routine 06/22/2020 2:00 PM [facility] PERIODIC ORAL EVALUATION - ESTABLISHED PATIENT Routine 06/22/2020 2:00 PM MST PERIODIC ORAL EVALUATION - ESTABLISHED PATIENT Routine 12/17/2019 12:00 AM MST 8 BLCH SOLUTION 1 TUBE Routine 0 12:00 AM MST ORAL HYGIENE INSTRUCTIONS Routine 2019 12:00 AM MST PROPHYLAXIS - ADULT Routine 12/17/2019 1 2:00 AM MST BITEWINGS - FOUR RADIOGRAPHIC IMAGES Routine 12/17/2019 12:00 AM MST ADDITIONAL X-RAY Routine 12/17/2019 12:0 0 AM MST ADDITIONAL X-RAY Routine 12/17/2019 12:0 0 AM MST ADDITIONAL X-RAY Routine 12/17/2019 12:0 0 AM MST ADDITIONAL X-RAY Routine 12/17/2019 12:0 0 AM MST ADDITIONAL X-RAY Routine 12/17/2019 12:0 0 AM MST SINGLE X-RAY Routine 12/17/2019 12:00 AM MST CANCELLED APPOINTMENT Routine 12/04/2019 12:00 AM MST 15 MOB AMALGAM 3 SURFACE Routine 020 1:00 AM MST 14 LO AMALGAM 2 SURFACE Routine 05/26/19 20 1:00 AM MST 15 O AMALGAM 1 SURFACE Routine 0 1:00 AM MST PERIODIC ORAL EVALUATION - ESTABLISHED PATIENT Routine 05/26/2019 1:00 AM MST ORAL HYGIENE INSTRUCTIONS Routine 2019 1:00 AM MST PROPHYLAXIS - ADULT Routine 05/26/2019 1 :00 AM MST BITEWINGS - FOUR RADIOGRAPHIC IMAGES Routine 05/26/2019 1:00 AM MST ADDITIONAL X-RAY Routine 05/26/2019 1:00 AM MST ADDITIONAL X-RAY Routine 05/26/2019 1:0 0 AM MST ADDITIONAL X-RAY Routine 05/26/2019 1:00 AM MST ADDITIONAL X-RAY Routine 05/26/2019 1:00 AM MST ADDITIONAL X-RAY Routine 05/26/2019 1:00 AM MST SINGLE X-RAY Routine 05/26/2019 1:00 AM MST 14 MO AMALGAM 2 SURFACE Routine 11/19/19 19 12:00 AM MST 30 B AMALGAM 1 SURFACE Routine 9 12:00 AM MST 2 O AMALGAM 1 SURFACE Routine 11/18/2018 12:00 AM MST 3 O AMALGAM 1 SURFACE Routine 11/18/2018 12:00 AM MST 20 ENDODONTIC THERAPY, PREMOLAR TOOTH (EXCLUDING FINAL [employer]) Routine 11/18/2018 12:00 AM MST 20 [facility] PFM POST Routine 11/18/2018 12: 00 AM [facility] 19 CROWN PFM POST Routine 11/18/2018 12: 00 AM [facility] 18 CROWN PFM POST Routine 11/18/2018 12: 00 AM [facility] COMPREHENSIVE ORAL EVALUATION - NEW OR ESTABLISHED PATIENT Routine 11/18/2018 12:00 AM [facility] ORAL HYGIENE INSTRUCTIONS Routine 2018 12:00 AM [facility] PROPHYLAXIS - ADULT Routine 11/18/2018 1 2:00 AM [facility] PANORAMIC RADIOGRAPHIC IMAGE Routine 11/18/2018 12:00 AM [facility] INTRAORAL - COMPREHENSIVE SERIES OF RADIOGRAPHIC IMAGES Routine 11/18/2018 12:00 AM MST INTRAORAL PHOTO Routine 11/18/2018 12:00 AM MST INTRAORAL PHOTO Routine 11/18/2018 12:00 AM MST INTRAORAL PHOTO Routine 11/18/2018 12:00 AM [facility] INTRAORAL PHOTO Routine 11/18/2018 12:00 AM [facility] 31 O COMPOSITE FILLING Routine 9 12:00 AM [facility] 30 DO COMPOSITE FILLING Routine 11/19/19 19 12:00 AM [facility] Visit Diagnoses Not on file Insurance [facility] [place] [id number] [facility]
--- OUTSIDE RECORDS SUMMARY | 2024-08-30 21:42 | XMS_ITS | Clinical Summary ---
Author Organization [facility] Address [address] [place] [address] Phone [phone] Care Team Providers Care Flight Follower Name Role Phone Pcp, No Primary Care [...] Health Maintenance Due Date Last Done Comments Annual Preventative Visit (APV) [address] Scan [address] CT Colonography 1959 Cologuard Stool Test 1959 Colonoscopy 1959 Colorectal Cancer Screening 1959 FIT-DNA 1959 FIT 1959 FOBT 1959 Medicare Initial Physical (IPPE) 1959 Sigmoidoscopy 1959 Pap Smear 02/10/1980 Cervical Cancer Screening 1989 HPV/Cotest 1989 Mammogram 1999 Pneumococcal Vaccine: 65+ Ye ars (1 of 4 - PCV) 2009 Zoster Vaccines (1 of 2) 2009 Influenza Vaccine (Season Ended) 2024 Meningococcal B Vaccine Aged Out No l onger eligible based on patient's age to complete this topic Care Teams Flight Follower Relationship Specialty Start Date End Date NO PCP PCP - General 07/02/20
[2024-08-30 22:56] VITALS: BP 160/66; PULSE 61; RESP 16; TEMP 36.6; O2SAT 98
[2024-08-30 22:57] VITALS: BP 160/66; O2SAT 97
[2024-08-30 23:23] LABS: Add Urine Microscopic? NO; Appearance Urine Clear (Clear); Bilirubin Urine Negative (Negative); Blood Urine Negative (Negative); Color Urine Yellow (Yellow); Glucose Urine UA Negative (Negative); Ketones Urine Negative (Negative); Leukocyte Esterase Ur Negative LEU/UL (Negative); Nitrate Urine Negative (Negative); Protein Urine Negative (Negative); Specific Grav Ur 1.012 (1.001-1.035); Urobilinogen Urine 0.2 mg/dL (<2.0); pH Urine 7.5 (5.0-9.0)
--- OUTSIDE RECORDS SUMMARY | 2024-08-30 23:25 | XMS_ITS | Clinical Summary ---
Author Organization [facility] Address [address] [place] [address] Care Team Providers Care Hospital Director Name Role Phone Unavailable Primary Care Provider [...] Most Recently Relevant to Health Maintenance [facility]
--- OUTSIDE RECORDS SUMMARY | 2024-08-30 23:25 | XMS_ITS | Data Portability ---
Author Organization [place] - [facility], [facility], [facility] Address [address] [facility] [address] [place] [address] Assessment No assessment recorded. Plan of Treatment Reminders Order Date Submit Date Provider Last Modified By Organization Details Last Modified Time Details Appointments None recorded. Lab renal function panel, serum 2023 024 [email or web address] Not available 12:01:07 protein:cre atinine ratio, urine 2023 024 [email or web address] 10 Not available 12:01:07 PTH (parathyroi d hormone), intact, serum or plasma 2023 024 [email or web address] 10 Not available 12:01:08 magnesium, serum or plasma 2023 024 [email or web address] 10 Not available 5 12:01:08 urinalysis complete, reflex culture 2023 024 [email or web address] 10 Not available 5 12:01:08 microalbumi n/creatinin e, mass ratio, urine 2023 024 [email or web address] 10 Not available 5 12:01:08 hemoglobin + hematocrit, blood 2023 024 [email or web address] [facility], [address], [place], [address], 5 12:00:59 renal function panel, serum 2022 023 [email or web address] Not available 4 11:39:34 protein:cre atinine ratio, urine 2022 023 [email or web address] Not available 4 11:39:34 PTH (parathyroi d hormone), intact, serum or plasma 2022 023 [email or web address] Not available 4 11:39:34 magnesium, serum or plasma 2022 023 [email or web address] Not available 4 11:39:35 urinalysis complete, reflex culture 2022 023 [email or web address] Not available 4 11:39:35 microalbumi n/creatinin e, mass ratio, urine 2022 023 [email or web address] Not available 4 11:39:35 hemoglobin + hematocrit, blood 2022 023 IVANHOE [facility], [address], [place], [address], 4 14:12:00 renal function panel, serum 2021 022 [email or web address] Not available 2 15:32:48 CBC w/ auto diff 2021 022 [email or web address] 9 Not available 15:32:48 protein:cre atinine ratio, urine 2021 022 [email or web address] Not available 2 15:32:48 PTH (parathyroi d hormone), intact, serum or plasma 2021 022 [email or web address] 9 Not available 2 15:32:48 magnesium, serum or plasma 2021 022 [email or web address] 9 Not available 2 15:32:48 urinalysis complete, reflex culture 2021 022 [email or web address] 9 Not available 2 15:32:48 microalbumi n/creatinin e, mass ratio, urine 2021 [email or web address] Not available 15:32:48 renal function panel, serum 2021 [facility] Not available 14:04:30 CBC w/ auto diff 2021 [facility] Not available 14:04:30 protein:cre atinine ratio, urine 2021 [facility] Not available 14:04:31 PTH (parathyroi d hormone), intact, serum or plasma 2021 [facility] Not available 14:04:31 magnesium, serum or plasma 2021 [facility] Not available 14:04:31 urinalysis complete, reflex culture 2021 [facility] Not available 14:04:31 microalbumi n/creatinin e, mass ratio, urine 2021 [facility] Not available 14:04:31 Referral None recorded. Procedures None recorded. Surgeries None recorded. Imaging None recorded. Medication Orders losartan 50 mg tablet 2023 024 [facility] #[id number], [address] [facility], [place], [address], 4 11:59:29 losartan 50 mg tablet 2021 [facility] # [id number], [address] [place], [address], 13:49:45 losartan 50 mg tablet 2021 [facility] # [id number], [address] [place], [address], 13:56:00 hydrochloro thiazide 12.5 mg tablet 2021 022 [id number], [address] [place], [address], 11:56:50 Patient TargetsNo targets recorded. Patient InstructionsNo instructions recorded. Reason for Referral None Reported. Results Created Date Observation Date Name Description Value Unit Range Abnormal Flag Note LastModifiedBy Organization Detail LastModifiedTime 06/28/19 22 06/27/2021 JUAN COMPL ETE dsdna antibody index <1.0 IU/mL <=4.0 Not Available [address], [place], [address], 07/02/2021 07:07:35 06/28/19 22 06/27/2021 JUAN COMPL ETE dsdna antibody result NEGATI VE negati ve dsDNA Refer ence Range : <=4.0 IU/mL Negat bianka 5.0-9 .0 IU/mL Indet ermin ate >=10. 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 antibodies NEGATI VE negati ve Not Available [facility] [address], [place], [address], 07/02/2021 07:07:35 06/28/19 22 06/27/2021 JUAN COMPL ETE ss-A (RO) antibody NEGATI VE negati ve Not Available [facility] [address], [place], [address], 07/02/2021 07:07:35 06/28/19 22 06/27/2021 JUAN COMPL ETE ss-B (la) antibody NEGATI VE negati ve Not Available [facility] [address], [place], [address], 07/02/2021 07:07:35 06/28/19 22 06/27/2021 JUAN COMPL ETE JUAN screen NEGATI VE negati ve Antin uclea r antib odies detec nette using the Bio[employer] ex 2200 JUAN Scree n multi plex immun oassa y. Not Available [address], [place], [address], 07/02/2021 07:07:35 06/28/19 22 06/27/2021 C3+C4 COMPL EMENT GROUP C3 complement component 110 mg/dL 90 - 180 Not Available [address], [place], [address], 07/02/2021 07:07:50 06/28/19 22 06/27/2021 C3+C4 COMPL EMENT GROUP C4 complement component 18 mg/dL 16 - 47 Not Available [address], [place], [address], 07/02/2021 07:07:50 06/28/19 22 06/27/2021 CBC W/ DIFFE RENTI AL WBC 7.5 k/mm3 4.0 - 11.0 Not Available [address], [place], [address], 07/02/2021 07:08:10 06/28/19 22 06/27/2021 CBC W/ DIFFE NORMANTI AL RBC 3.96 m/mm3 3.70 - 5.40 Not Available [address], [place], [address], 07/02/2021 07:08:10 06/28/19 22 06/27/2021 CBC W/ DIFFE NORMANTI AL hemoglobin 12.2 g/dL 11.5 - 16.0 Not Available [address], [place], [address], 07/02/2021 07:08:10 06/28/19 22 06/27/2021 CBC W/ DIFFE RENTI AL hematocrit 40.0 % 35.0 - 48.0 Not Available [address], [place], [address], 07/02/2021 07:08:10 06/28/19 22 06/27/2021 CBC W/ DIFFE RENTI AL MCV 101.0 fL 78.0 - 100.0 high Not Available [address], [place], [address], 07/02/2021 07:08:10 06/28/19 22 06/27/2021 CBC W/ DIFFE RENTI AL MCH 30.8 pg 27.0 - 34.0 Not Available [address], [place], [address], 07/02/2021 07:08:10 06/28/19 22 06/27/2021 CBC W/ DIFFE RENTI AL MCHC 30.5 g/dL 31.0 - 37.0 low Not Available [address], [place], [address], 07/02/2021 07:08:10 06/28/19 22 06/27/2021 CBC W/ DIFFE RENTI AL platelet count 264 k/mm3 130 - 450 Not Available [address], [place], [address], 07/02/2021 07:08:10 06/28/19 22 06/27/2021 CBC W/ DIFFE RENTI AL RDW(SD) 52.1 fL 38.0 - 49.0 high Not Available [address], [place], [address], 07/02/2021 07:08:10 06/28/19 22 06/27/2021 CBC W/ DIFFE RENTI AL RDW(CV) 13.9 % 11.0 - 15.0 Not Available [address], [place], [address], 07/02/2021 07:08:10 06/28/19 22 06/27/2021 CBC W/ DIFFE RENTI AL MPV 10.1 fL 7.5 - 14.0 Not Available [facility] [address], [place], [address], 07/02/2021 07:08:10 06/28/19 22 06/27/2021 CBC W/ DIFFE RENTI AL segmented neutrophils 67.1 % Autom ated Diff Not Available [address], [place], [address], 07/02/2021 07:08:10 06/28/19 22 06/27/2021 CBC W/ DIFFE RENTI AL lymphocytes 21.9 % Not Available [facility] [address], [place], [address], 07/02/2021 07:08:10 06/28/19 22 06/27/2021 CBC W/ DIFFE RENTI AL monocytes 7.2 % Not Available [facility] [address], [place], [address], 07/02/2021 07:08:10 06/28/19 22 06/27/2021 CBC W/ DIFFE RENTI AL eosinophils 2.8 % Not Available [facility] [address], [place], [address], 07/02/2021 07:08:10 06/28/19 22 06/27/2021 CBC W/ DIFFE RENTI AL basophils 0.7 % Not Available [address], [place], [address], 07/02/2021 07:08:10 06/28/19 22 06/27/2021 CBC W/ DIFFE RENTI AL absolute neutrophil 5.05 k/uL 1.60 - 9.30 Not Available [address], [place], [address], 07/02/2021 07:08:10 06/28/19 22 06/27/2021 CBC W/ DIFFE RENTI AL absolute lymphocyte 1.65 k/uL 0.60 - 5.50 Not Available [address], [place], [address], 07/02/2021 07:08:10 06/28/19 22 06/27/2021 CBC W/ DIFFE RENTI AL absolute monocyte 0.54 k/uL 0.10 - 1.60 Not Available [address], [place], [address], 07/02/2021 07:08:10 06/28/19 22 06/27/2021 CBC W/ DIFFE RENTI AL absolute eosinophil 0.21 k/uL 0.00 - 0.70 Not Available [address], [place], [address], 07/02/2021 07:08:10 06/28/19 22 06/27/2021 CBC W/ DIFFE RENTI AL absolute basophil 0.05 k/uL 0.00 - 0.20 Not Available [address], [place], [address], 07/02/2021 07:08:10 03/14/06/27/2021 CBC W/ DIFFE RENTI AL immature granulocytes 0.3 % Not Available [address], [place], [address], 07/02/2021 07:08:10 06/28/19 22 06/27/2021 CBC W/ DIFFE RENTI AL absolute immature granulocytes 0.02 k/uL 0.00 - 0.10 Not Available [address], [place], [address], 07/02/2021 07:08:10 06/28/1906/27/2021 CBC W/ DIFFE RENTI AL NRBC re, nucleated red blood cell percent 0.0 % 0.0 - 1.0 Not Available [address], [place], [address], 07/02/2021 07:08:10 06/28/19 22 06/27/2021 CYSTA TIN C cystatin C 1.20 mg/L 0.52-1 .14 high Not Available [address], [place], [address], 07/02/2021 07:08:22 06/28/19 22 06/27/2021 CYSTA TIN C eGFR 56 mL/mi n/1.7 3m2 > or = 60 low Not Available [address], [place], [address], 07/02/2021 07:08:22 06/28/19 22 06/27/2021 MAGNE SIUM magnesium 1.9 mg/dL 1.5 - 2.5 Not Available [address], [place], [address], 07/02/2021 07:08:36 06/28/19 22 06/27/2021 MICRO ALBUM IN, URINE , RANDO M, RAMONE LIZED creatinine, urine, random 43 mg/dL 19 - 280 Not Available [facility] - [address], [place], [address], 07/02/2021 07:08:54 06/28/19 22 06/27/2021 MICRO ALBUM IN, URINE , RANDO M, RAMONE LIZED urine albumin, random <5 mg/L not establ ished Not Available [facility] [address] [place] [address] [address], [place], [address], 07/02/2021 07:08:54 06/28/19 22 06/27/2021 MICRO ALBUM IN, URINE , RANDO M, RAMONE LIZED urine albumin/urin e creatinine ratio < 12 mg/g_ creat see note Note: Due to a resul t below tristan tical limit s, the Urine Album in/Cr eatin ine Ratio was estim ated using a fixed urine album in of 5 mg/L. Album inuri a Categ ories in Chron ic Kidne y Disea se Urine Album in/Ur ine Creat inine Ratio (mg/g Creat inine ): Ramone l/Mil d Incre ase: <30 mg/g Creat inine Moder ately Incre ased: 30-30 0 mg/g Creat inine Sever charlie Incre ased: >300 mg/g Creat inine Urine album in and creat inine have high biolo gical varia tion and may be affec nette by other patho logic al and/o r physi ologi beltran event s, to inclu de age, sex, race, exerc ise, uprig ht postu re, UTI, and septi cemia . Patie nts with value s betwe en 30 and 300 mg/g shoul d under go addit ional tests withi n 2 month s to confi rm album inuri a. Colle ct these addit ional sampl es 1-2 weeks apart , ideal ly as a first morni ng speci men. The eleva tion of 2 out of 3 of these speci mens is indic ative of prolo nged album inlesia Felix y Inter Supp. 2013; 3:1-1 50 Not Available [facility] [address], [place], [address], 07/02/2021 07:08:54 06/28/19 22 06/27/2021 PROTE IN/CR EATIN INE, URINE , RANDO M, RAMONE LIZED protein, urine, random <6 mg/dL not establ ished Not Available [facility] - [address], [place], [address], 07/02/2021 07:09:10 06/28/19 22 06/27/2021 PROTE IN/CR EATIN INE, URINE , RANDO M, RAMONE LIZED protein, urine, normalized SEE COMMEN T mg/g_ creat 15 - 220 abnormal Unabl e to calcu late the total amoun t of tristan te in the urine colle ction becau se the jayden ntrat ion of tristan te is below the tristan tical measu remen t range . Not Available [facility] - [address], [place], [address], 07/02/2021 07:09:10 06/28/19 22 06/27/2021 INTAC T PTH intact PTH 37 pg/mL 15 - 65 Intac t PTH (PTH) in relat ion to Calci um (Ca): Ramone l Parat hyroi d funct ion: PTH Ramone l and Ca Ramone l Hypop tammy yroid ism: PTH Low or Low Ramone l and Ca Low Prima ry Hyper parat hyroi dism: PTH Ramone l or High and Ca High Secon mainor Hyper parat hyroi dism: PTH High and Ca Ramone l or Low Terti norma Hyper parat hyroi dism: PTH High and Ca High Non-p tammy yroid Hyper calce mabel: PTH Low or Low Ramone l and Ca High Chron ic Renal Disea se: Osteo malac ia: Typic ally ramone l to sligh tly eleva nette PTH Ostei tis Fibro sa: Bixby nette to moo hinojosa eleva nette PTH Not Available [address], [place], [address], 07/02/2021 07:09:23 06/28/19 22 06/27/2021 RENAL FUNCT ION PANEL W/ EGFR glucose 94 mg/dL 70 - 99 Gluco se refer ence range refle cts fasti ng state . Not Available [address], [place], [address], 07/02/2021 07:09:38 06/28/19 22 06/27/2021 RENAL FUNCT ION PANEL W/ EGFR urea nitrogen (BUN) 22 mg/dL 7 - 28 Not Available [address], [place], [address], 07/02/2021 07:09:38 06/28/19 22 06/27/2021 RENAL FUNCT ION PANEL W/ EGFR creatinine 1.08 mg/dL 0.60 - 1.40 Not Available [address], [place], [address], 07/02/2021 07:09:38 06/28/19 22 06/27/2021 RENAL FUNCT ION PANEL W/ EGFR GFR estimated (non-) 58 mL/mi n/1.7 3m2 >=60 low eGFRc r calcu lated using the CKD-E PI 2020 equat ion NKF KDOQI and KDIGO guide lines recom mend confi rming any eGFRc r of 45-59 mL/mi n/1.7 3m of < 30 mg/g using an eGFR calcu lated using cysta tin C and creat inine . Not Available [address], [place], [address], 07/02/2021 07:09:38 06/28/19 22 06/27/2021 RENAL FUNCT ION PANEL W/ EGFR BUN/creatini ne ratio 20.4 10.0 - 28.0 Not Available [address], [place], [address], 07/02/2021 07:09:38 06/28/19 22 06/27/2021 RENAL FUNCT ION PANEL W/ EGFR sodium 137 mmol/ L 135 - 145 Not Available [address], [place], [address], 07/02/2021 07:09:38 06/28/19 22 06/27/2021 RENAL FUNCT ION PANEL W/ EGFR potassium 4.4 mmol/ L 3.6 - 5.3 Not Available [address], [place], [address], 07/02/2021 07:09:38 06/28/19 22 06/27/2021 RENAL FUNCT ION PANEL W/ EGFR chloride 100 mmol/ L 95 - 109 Not Available [address], [place], [address], 07/02/2021 07:09:38 06/28/19 22 06/27/2021 RENAL FUNCT ION PANEL W/ EGFR carbon dioxide (co2) 24 mmol/ L 20 - 31 Not Available [address], [place], [address], 07/02/2021 07:09:38 06/28/19 22 06/27/2021 RENAL FUNCT ION PANEL W/ EGFR albumin 4.2 g/dL 3.8 - 5.1 Not Available [address], [place], [address], 07/02/2021 07:09:38 06/28/19 22 06/27/2021 RENAL FUNCT ION PANEL W/ EGFR calcium 9.4 mg/dL 8.7 - 10.4 Not Available [address], [place], [address], 07/02/2021 07:09:38 06/28/19 22 06/27/2021 RENAL FUNCT ION PANEL W/ EGFR phosphorus (inorganic) 4.1 mg/dL 2.4 - 4.8 Not Available [address], [place], [address], 07/02/2021 07:09:38 06/28/19 22 06/27/2021 RHEUM ATOID FACTO R rheumatoid factor 25 IU/mL <=13 high Not Available [address], [place], [address], 07/02/2021 07:09:39 06/28/19 22 06/27/2021 URINA LYSIS WITH REFLE X TO CULTU RE WBC, urine 0-5 /hpf 0-5 Not Available [address], [place], [address], 07/02/2021 07:09:52 06/28/19 22 06/27/2021 URINA LYSIS WITH REFLE X TO CULTU RE RBC, urine 0-5 /hpf 0-5 Not Available [address], [place], [address], 07/02/2021 07:09:52 06/28/19 22 06/27/2021 URINA LYSIS WITH REFLE X TO CULTU RE epithelial cells, urine 0-2 /hpf 0-2 Not Available [address], [place], [address], 07/02/2021 07:09:52 06/28/19 22 06/27/2021 URINA LYSIS WITH REFLE X TO CULTU RE bacteria, urine NONE SEEN /hpf none seen Not Available [address], [place], [address], 07/02/2021 07:09:52 06/28/19 22 06/27/2021 URINA LYSIS WITH REFLE X TO CULTU RE hyaline casts 0-2 /lpf 0-2 Not Available [address], [place], [address], 07/02/2021 07:09:52 06/28/19 22 06/27/2021 URINA LYSIS WITH REFLE X TO CULTU RE color, urine NORMAL normal Not Available [address], [place], [address], 07/02/2021 07:09:52 06/28/19 22 06/27/2021 URINA LYSIS WITH REFLE X TO CULTU RE clarity, urine CLEAR clear Not Available [address], [place], [address], 07/02/2021 07:09:52 06/28/19 22 06/27/2021 URINA LYSIS WITH REFLE X TO CULTU RE specific gravity, urine 1.009 1.005 - 1.030 Not Available [address], [place], [address], 07/02/2021 07:09:52 06/28/19 22 06/27/2021 URINA LYSIS WITH REFLE X TO CULTU RE leukocyte esterase, urine qualitative NEGATI VE negati ve Not Available [address], [place], [address], 07/02/2021 07:09:52 06/28/19 22 06/27/2021 URINA LYSIS WITH REFLE X TO CULTU RE nitrite, urine qualitative NEGATI VE negati ve Not Available [address], [place], [address], 07/02/2021 07:09:52 06/28/1906/27/2021 URINA LYSIS WITH REFLE X TO CULTU RE pH, urine 6.5 5.0 - 8.0 Not Available [address], [place], [address], 07/02/2021 07:09:52 06/28/19 22 06/27/2021 URINA LYSIS WITH REFLE X TO CULTU RE blood, urine qualitative NEGATI VE negati ve Not Available [address], [place], [address], 07/02/2021 07:09:52 06/28/19 22 06/27/2021 URINA LYSIS WITH REFLE X TO CULTU RE glucose, urine qualitative NEGATI VE mg/dL negati ve Not Available [address], [place], [address], 07/02/2021 07:09:52 06/28/1906/27/2021 URINA LYSIS WITH REFLE X TO CULTU RE ketones, urine qualitative NEGATI VE negati ve Not Available [address], [place], [address], 07/02/2021 07:09:52 06/28/1906/27/2021 URINA LYSIS WITH REFLE X TO CULTU RE urobilinogen , urine qualitative NORMAL eu/dL normal Not Available [facility] [address], [place], [address], 07/02/2021 07:09:52 06/28/19 22 06/27/2021 URINA LYSIS WITH REFLE X TO CULTU RE bilirubin, urine qualitative NEGATI VE negati ve Not Available [address], [place], [address], 07/02/2021 07:09:52 06/28/19 22 06/27/2021 URINA LYSIS WITH REFLE X TO CULTU RE protein, urine qualitative NEGATI VE mg/dL negati ve Not Available [facility] - [address], [place], [address], 07/02/2021 07:09:52 01/03/20 22 01/03/2022 CBC WITH DIFFE RENTI AL/PL ATELE T WBC 5.3 x10e3 /uL 3.4-10 .8 Not Available [facility] ([facility]) [address] [facility], [place], [address], 01/04/2022 23:06:53 01/03/20 22 01/03/2022 CBC WITH DIFFE RENTI AL/PL ATELE T RBC 4.13 x10e6 /uL 3.77-5 .28 Not Available [facility] ([facility]) [address] [place], [address], 01/04/2022 23:06:53 01/03/20 22 01/03/2022 CBC WITH DIFFE RENTI AL/PL ATELE T hemoglobin 13.2 g/dL 11.1-1 5.9 Not Available [facility] ([facility]) [address] [facility], [place], [address], 01/04/2022 23:06:53 01/03/20 22 01/03/2022 CBC WITH DIFFE RENTI AL/PL ATELE T hematocrit 39.1 % 34.0-4 6.6 Not Available [facility] ([facility]) [address] [facility], [place], [address], 01/04/2022 23:06:53 01/03/20 22 01/03/2022 CBC WITH DIFFE RENTI AL/PL ATELE T MCV 95 fL 79-97 Not Available [facility] ([facility]) [address] [facility], [place], [address], 01/04/2022 23:06:53 01/03/20 22 01/03/2022 CBC WITH DIFFE RENTI AL/PL ATELE T MCH 32.0 pg 26.6-3 3.0 Not Available [facility] ([facility]) [address] [facility], [place], [address], 01/04/2022 23:06:53 01/03/20 22 01/03/2022 CBC WITH DIFFE RENTI AL/PL ATELE T MCHC 33.8 g/dL 31.5-3 5.7 Not Available [facility] ([facility]) [address] [facility], [place], [address], 01/04/2022 23:06:53 01/03/20 22 01/03/2022 CBC WITH DIFFE RENTI AL/PL ATELE T RDW 12.6 % 11.7-1 5.4 Not Available [facility] ([facility]) [address] [place], [address], 01/04/2022 23:06:53 01/03/20 22 01/03/2022 CBC WITH DIFFE RENTI AL/PL ATELE T platelets 243 x10e3 /uL 150-45 0 Not Available [facility] ([facility]) [address] [place], [address], 01/04/2022 23:06:53 01/03/20 22 01/03/2022 CBC WITH DIFFE RENTI AL/PL ATELE T neutrophils 56 % not estab. Not Available [facility] ([facility]) [address] [place], [address], 01/04/2022 23:06:53 01/03/20 22 01/03/2022 CBC WITH DIFFE RENTI AL/PL ATELE T lymphs 28 % not estab. Not Available [facility] ([facility]) [address] [facility] [place], [address], 01/04/2022 23:06:53 01/03/20 22 01/03/2022 CBC WITH DIFFE RENTI AL/PL ATELE T monocytes 11 % not estab. Not Available [facility] ([facility]) [address] [facility], [place], [address], 01/04/2022 23:06:53 01/03/20 22 01/03/2022 CBC WITH DIFFE RENTI AL/PL ATELE T eos 4 % not estab. Not Available [facility] ([facility]) [address] [facility], [place], [address], 01/04/2022 23:06:53 01/03/20 22 01/03/2022 CBC WITH DIFFE RENTI AL/PL ATELE T basos 1 % not estab. 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 0 Not Available [facility] ([facility]) [address] [facility] [id number]|2024-08-30 23:26:00|2024-08-30 23:25:00|XMS_ITS|AMANDEEPG BOY|External Medical Summaries|[id number]|" Encounter Summary Created on: August 30, 2024 Ani Padilla : 1960 Sex: Female Author Organization [facility] Address [address] [place] [address] Care Team Providers Care Orthopedic Brace Maker Name Role Phone Unavailable Primary Care Provider Unavailabl e Prior Encounters Date Type Department Care Team Description 06/22/2020 Travel 06/22/2020 2:00 PM MST Office Visit [facility] [address], [facility] [address] [place] [id number] Demario Moran DMD 05/05/2019 Converted CPS Chart Documents [facility] [address], [facility] [address] [place] [address] <No scans attached> 05/05/2019 Converted 13x Documents [facility] [address], [facility] [address] [place] [address] <No scans attached> Plan of Treatment [...] MST SINGLE X-RAY Routine 06/22/2020 2:00 PM MST PERIODIC ORAL EVALUATION - ESTABLISHED PATIENT Routine 06/22/2020 2:00 PM MST PERIODIC ORAL EVALUATION - ESTABLISHED PATIENT Routine 12/17/2019 12:00 AM RUST 8 BLCH SOLUTION 1 TUBE Routine 12:00 AM MST ORAL HYGIENE INSTRUCTIONS Routine [...] 20 ENDODONTIC THERAPY, PREMOLAR TOOTH (EXCLUDING FINAL PRESYBETERIAN) Routine 11/18/2018 12:00 AM MST 20 CROWN PFM POST Routine 11/18/2018 12: 00 AM MST 19 CROWN PFM POST Routine 11/18/2018 12: 00 AM MST 18 CROWN PFM POST Routine 11/18/2018 12: 00 AM MST COMPREHENSIVE ORAL EVALUATION - NEW OR ESTABLISHED PATIENT Routine 11/18/2018 12:00 AM RUST ORAL HYGIENE INSTRUCTIONS Routine 2018 12:00 AM RUST PROPHYLAXIS - ADULT Routine 11/18/2018 1 2:00 AM RUST PANORAMIC RADIOGRAPHIC IMAGE Routine 11/18/2018 12:00 AM RUST INTRAORAL - COMPREHENSIVE SERIES OF RADIOGRAPHIC IMAGES Routine 11/18/2018 12:00 AM MST INTRAORAL PHOTO Routine 11/18/2018 12:00 AM MST INTRAORAL PHOTO Routine 11/18/2018 12:00 AM MST INTRAORAL PHOTO Routine 11/18/2018 12:00 AM MST INTRAORAL PHOTO Routine 11/18/2018 12:00 AM RUST 31 O COMPOSITE FILLING Routine 9 12:00 AM RUST 30 DO COMPOSITE FILLING Routine 11/19/19 19 12:00 AM RUST Visit Diagnoses Not on file Insurance [facility] [place] [id number] [facility] "
--- OUTSIDE RECORDS SUMMARY | 2024-08-30 23:25 | XMS_ITS | Referral Summary ---
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
--- OUTSIDE RECORDS SUMMARY | 2024-08-30 23:25 | XMS_ITS | Data Portability ---
Author Organization [place] [facility] [place] Address [address] [place] [address] Care Team Providers Care Admissions Specialist Name Role Phone ABDULKADIR BARRIOS Referring Provider [phone] Assessment Encounter Date Assessment Date Assessment LastModified by Organization Details LastModified Time 03/20/2024 03/20/2024 1. High risk for Obstructive sleep Apnea (JESSIE) based on symptomatology 2. Chronic Sleep initiation and maintenance Insomnia likely due to psychophysiological reasons, and apnea 3. Hypersomnia and fatigue counselled that sleep apnea results in frequent electrocortical arousals causing sleep fragmentation and deprivation of deep sleep leading to daytime fatigue and hypersomnolence. - educated and counselled regarding the risk factors, natural course, progression and complications of sleep apnea. - counselled that sleep apnea may be associated with various chronic medical issues like HTN, DM2, Obesity, depression, mood disorders, chronic pain, cardiovascular diseases like NE, Afib, cardiomyopathy, stroke and possibly in sleep. PLAN: - discussed about the diagnostic approach of sleep apnea in the form of sleep studies. ordered split night sleep study - discussed various treatment options including weight loss, exercise, pap therapy, dental device, surgical techniques and hypoglossal nerve stimulation. patient prefers pap therapy and wants to proceed with it if needed - please follow primary care provider and specialists for management of chronic medical issues - avoid drowsy driving and use precautions if drowsy while driving like stopping on the side and napping for 10-15 min, rolling down windows, caffeine intake. - weight loss counselling with diet modification and exercise recommended. - patient will return following sleep studies to discuss the results and management - patient understands and verbalized agreement to this plan. A total of 45 minutes time was spent today including the time spent before the visit reviewing the intake paperwork, time spent with them during the consult visit, and time spent after the visit documenting and coordinating care. joyce Not available 03/20/2024 17:20:57 04/29/2024 04/29/2024 1. no sleep apne a but significant hypoxemia noted based on psg on 03/29/24 2. severe plmd and mild RLS based on psg - likely secondary to hypothyroidism. clinical resolution of rls noted with improved in thyroid function. PLAN: - she will have lung imaging and see pulmonology for nocturnal hypoxemia evaluation - we will monitor RLS/PLMS for now - please follow primary care provider and specialists for management of chronic medical issues - avoid drowsy driving and use precautions if drowsy while driving like stopping on the side and napping for 10-15 min, rolling down windows, caffeine intake. - weight loss counselling with diet modification and exercise recommended. - patient will return in 3 months - patient understands and verbalized agreement to this plan. joyce Not available 04/29/2024 12:02:30 Plan of Treatment Reminders Order Date Submit Date Provider Last Modified By Organization Details Last Modified Time Details Appointments None recorde d. Lab None recorde d. Referral None recorde d. Procedures polysom nograph y, split night (PROC) - Split night: Y 024 03/20/20 24 [email or web address] [facility] [place], [address], [facility], [place], [address], 15:30:02 Surgeries None recorde d. Imaging None recorde d. Medication Orders None recorde d. Patient TargetsNo targets recorded. 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 If drowsy while driving please remove yourself to a safe area and take a 18-14-viubgo nap and only continue driving if you feel fully alert. 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 If drowsy while driving please remove yourself to a safe area and take a 48-21-qskmrv nap and only continue driving if you feel fully alert. [email or web address] Not available 04/29/2024 11:46:46 Reason for Referral None Reported. Results Created Date Observation Date Name Description Value Unit Range Abnormal Flag Note LastModifiedBy Organization Detail LastModifiedTime 04/13/20 24 03/29/2024 polys omnog connie , diagn ostic (PROC ) No observ ation record ed. [email or web address] Not Available 2023 19:38:12 04/13/20 24 03/29/2024 polys omnog connie , diagn ostic (PROC ) No observ ation record ed. [email or web address] Not Available 2023 19:19:29 04/13/20 24 03/29/2024 polys omnog connie , diagn ostic (PROC ) No observ ation record ed. [email or web address] Not Available 2023 19:18:55 Result Notes None recorded. Problems Name Problem SNOMED Code Status Onset Date Resolution Date Notes Provider Name and Address Organization Details Recorded Time Essential hypertensi on 22684994 Active 2023 Boris Burris MD [address], [place], [address] , [facility] - [facility] 4 17:11:33 Snoring 08104022 Active 2023 Boris Burris MD [address], [place], [address] , [facility] - [facility] 4 17:11:33 Hypersomni a 78063143 Active 2023 Boris Burris MD [address], [place], [address] , [place] [facility] 4 17:11:33 Fatigue 86664655 Active 2023 Boris Burris MD [address], [place], [address] , [place] [facility] 4 17:11:34 Chronic insomnia 960837857 Active 2023 Boris Burris MD [address], [place], [address] , [place] [facility] 4 17:11:34 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 8800553195015 07 Active [address], [place], [address] , [place] [facility] 4 17:11:34 Restless legs 28954404 Active 2024 Boris Burris MD [address], [place], [address] , [place] [facility] 5 11:53:02 Hypoxemia 310384315 Active 2024 Boris Burris MD [address], [place], [address] , [place] [facility] 5 11:54:44 Periodic limb movement disorder 784406073 Active [address], [place], [address] , [facility] - [facility] 5 11:55:09 Problem Notes None recorded. Procedures Surgical History Date Name Laterality Status Provider Name and Address Organization Details Recorded Time Appendectomy completed Boris Burris MD [address], [place], [address], [place] [facility] 03/20/2024 17:05:45 Hernia Repair completed Boris Burris MD [address], [place], [address], [place] [facility] 03/20/2024 17:05:45 Breast Surgery completed MD [address], [place], [address], [place] [facility] 03/20/2024 17:05:54 Caesarean Section completed Dick Burris MD [address], [place], [address], [place] [facility] 03/20/2024 17:05:54 Laparoscopy completed Boris Burris MD [address], [place], [address], [place] [facility] 03/20/2024 17:05:54 Laparotomy completed Boris Burris MD [address], [place], [address], [place] [facility] 03/20/2024 17:05:54 Orthopedic Surgery completed Boris Burris MD [address], [place], [address], [place] [facility] 03/20/2024 17:05:54 LASIK completed Boris Burris MD [address], [place], [address], [place] [facility] 03/20/2024 17:05:54 Imaging Results Imaging Date Name Status LastModified by Organ [facility] Details LastModified Time 03/29/2024 polysomnography , diagnostic (PROC) completed Information not available 04/15/2024 19:38:12 03/29/2024 polysomnography , diagnostic (PROC) completed Information not available 04/15/2024 19:19:29 03/29/2024 polysomnography , diagnostic (PROC) completed Information not available 04/15/2024 19:18:55 Procedure Notes None recorded. Medical Equipment None Reported. Allergies Allergen ID Allergen Name Allergen Category Reaction Reaction Severity Criticality Documentation Date Start Date Code Code System Note Provider Name and Address Organization Details Recorded Time 13052 Product containin g penicilli n (product) medicatio n anaphylax is Not available Not available 03/20/2024 63184 8001 STEPHANIE Burris MD [address], [place], [address], [place] [facility] 4 17:05:45 44762 Substance with sulfonami de structure and antibacte rial mechanism of action (substanc e) medicatio n anaphylax is Not available Not available 03/20/2024 66664 8003 STEPHANIE Burris MD [address], [place], [address], [place] [facility] 4 17:05:45 Medications Name Sig Start Date Stop Date Status Note LastModified by Organization Details LastModified Time losartan 50 mg tablet TAKE ONE TABLET BY MOUTH ONE TIME DAILY AT NIGHT active Not Available Not Available No t Available azithromycin 250 mg tablet take 2 tablets by mouth on the first day, then 1 tablet daily for 4 days active Not Available Not Available No t Available levothyroxine 75 mcg tablet take1 tablet in the morning on an empty stomach every other day active Not Available Not Available No t Available levothyroxine 88 mcg tablet TAKE ONE TABLET BY MOUTH EVERY OTHER DAY in THE MORNING active Not Available Not Available No t Available codeine 10 mg-guaifenesin 100 mg/5 mL oral liquid take 10 mL by mouth as needed every 4 hrs for 4 days active Not Available Not Available No t Available ezetimibe 10 mg tablet active Not Available Not Available Not Available rosuvastatin 5 mg tablet TAKE ONE TABLET BY MOUTH ONE TIME DAILY active Not Available Not Available No t Available hydrochlorothia zide 12.5 mg tablet TAKE ONE TABLET BY MOUTH ONCE DAILY EVERY MORNING active Not Available Not Available No t Available sodium,potassiu m,mag sulfates 17.5 gram-3.13 gram-1.6 gram oral soln active Not Available Not Available No t Available Praluent Pen 75 mg/mL subcutaneous pen injector active Not Available Not Available Not Available Vitals Date Recorded Body temperature Body height Body mass index (BMI) Body weight Heart rate Respiratory rate Oxygen saturation Oxygen saturation in Arterial blood by Pulse oximetry Systolic blood pressure Diastolic blood pressure Provider Name and Address Organization Details Last Updated DateTime 97 [degF] 170.18 cm 25.4 kg/m2 18828.4 g 57 /min 17 /min 96 % 96 % 134 mm[Hg] 90 mm[Hg] Carlene Zuleta [place] [facility] 17:01:47 Social History Question Answer Notes LastModified by [employer] Details LastModified Time Tobacco Smoking Status Never Smoker Boris Burris MD [address],[place] [address], [place], [address], [facility] - [facility] 03/20/2024 17:05:45 What Is Your Level Of Caffeine Consumption? Moderate Information not available 03/20/2024 How Many Times Per Week Do You Exercise? 1-2 Times Per Week Information not available 03/20/2024 Sex: Unknown Functional Status Question Answer Note LastModified by [employer] Details LastModified Time Do you use any illicit or recreational drugs? No Information not available 03/20/2024 Are you currently employed? No Information not available 03/20/2024 What is your exercise level? Moderate Information not available 03/20/2024 Mental Status None recorded. Family History Relationship Description Onset Age of this Age Resolved Age Notes LastModified by Organization Details LastModified Time Mother Hypertensive disorder [email or web address] Not available 2023 17:05:45 Mother Obstructive sleep apnea syndrome svajjala Not available 2023 17:05:45 Sister Hypertensive disorder svajjala Not available 2023 17:05:45 Sister Obstructive sleep apnea syndrome svajjala Not available 2023 17:05:45 Father Hypertensive disorder svajjala Not available 2023 17:05:45 Medical History Condition Response High Cholesterol Y Allergies/Hayfever Y Hypertension Y Gynecological HistoryNo gynecological history recorded. Obstetrics History GPAL:G 0 P 0 0 0 0 Past Encounters Encounter ID Performer Location Encounter Start Date Encounter Closed Date Diagnosis/Indication Diagnosis SNOMED-CT Code Diagnosis ICD10 Code Diagnosis Note [id number] MD [place] Ballesteros 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 02 Periodic l imb movement disorder 403469483 G47.61 Health Concerns Section Related Observation LastModified by Organization Detai ls LastModified Time None Recorded Concern Status LastModified by Organization Details LastModified Time None Recorded Advance Directives Directive None Recorded Payers Encounter Date Sequence Insurance Name Policy Number Policy Garay Covered Member ID Garay Member ID Guarantor Name 03/20/2024 1 [place] Ani E Feigh [id number] Ani E Feigh 03/20/2024 2 [facility] [facility] (MEDICARE SUPPLEMENT) Ani E E Feigh [id number] Ani E Feigh 04/29/2024 1 [place] Ani E Feigh [id number] Ani Padilla 04/29/2024 2 [facility] [facility] (MEDICARE SUPPLEMENT) Ani Padilla [id number] Ani Padilla Notes Date Note Type Note Provider Name and Address Organization Details Recorded Time 03/20/2024 text/html Ms. Padilla , a ve ry pleasant 64yr old lady presents for evaluation of insomnia and possible sleep apnea- she reports not being a good sleeper all her life. lately she has not been feeling refreshed with her sleep- she has strong family hx of sleep apnea and wants to get evaluated Sleep Habits:1. Bedtime is around 9 pm on weekdays and on weekends, it usually takes few hours to fall asleep, wakes up 3 times in the middle of the sleep for unknown reasons, urination. It takes few to many min to fall back asleep. risetime is around 6 am on weekdays and on weekends. does not feel refreshed on waking up.2. Daytime naps - 4 days a week3. Any prescription medications/over-the- counter medications/herbal supplements to help with sleep/wakefullness - no Sleep Environment :1. Typical sleep position - lateral supine2. Bedpartner - yes3. Is bedroom cool - yes Dark - yes Quiet - yes and comfortable - yes4. Within 4-6 hrs of bedtime do you drink alcohol - no caffeinated beverages - no smoke/eat marijuana - no smoke cigarettes - no Symptoms related to Sleep Apnea:1. Snores softly - yesWakes up frequently with.headaches - no.heartburn - no.nasal congestion - no.dry mouth - yes.snorting/choking/ gasping for air - no.grinds/clenching teeth in sleep - no Daytime symptoms:1. Excessive sleepiness - no2. Irresistable urges to fall asleep - no3. Memory loss/fogginess - no4. Lack of concentration - no5. Hyperactivity - no6. Fatigue - yes7. Drowsy driving - no8. Involved in any accidents due to drowsy driving - no Symptoms related to RLS/PLMD: yesSymptoms related to Parasomnias:1. Nightmares - no2. Sleep walking - no3. Acting out dreams - no4. Kicking/jerking of legs while sleeping - no5. Hallucinations when falling asleep/waking up - no6. Momentary complete paralysis when falling asleep or upon awakening - no7. While awake, any episodes of muscle weakness brought on by strong emotions - no Boris Burris MD [address], [place], [address], [place] [facility] 03/20/2024 17:21:15 04/29/2024 text/html Ms. Padilla , a ve ry pleasant 64yr old lady who presented for evaluation of insomnia and possible sleep apnea presents to f/u after sleep study She presented for a PSG on 03/29/24, Comprehensive attended nocturnal polysomnography demonstrated the presence of Hypoxemia (R09.02) and severe Periodic Limb movements (PLMD;G47.61). No significant sleep apnea noted with an AHI of 3.3/hr (AASM) 2.5/hr (CMS) REM AHI of 9/hr Supine AHI of 3/hr associated with significant {{desaturations hypox emia*}} to 83% (time spent with O2 sat less than or equal to 88% was 17% OF TST of 430.5 min) associated with significant sleep disruption and fragmentation. Periodic limb movements (PLMD) with PLMI of 46.1/hr was noted. - discussed these results in detail with the pt today.- she reports having imaging done recently that was significant for some bronchial lesions. she is scheduled for mri lungs. she will be referred to pulmonology after MRI from her pcp. she denies hx of asthma or copd.- she also notes having occasional restless legs while awake that have resolved after her synthroid dose was increased. she was noted to have low thyroid function around the time of sleep study. she suspects that could be the cause of elevated PLMs during the study REVIWED FIRST VISIT NOTES DOCUMENTED BELOW:- she reports not being a good sleeper all her life. lately she has not been feeling refreshed with her sleep- she has strong family hx of sleep apnea and wants to get evaluated Sleep Habits:1. Bedtime is around 9 pm on weekdays and on weekends, it usually takes few hours to fall asleep, wakes up 3 times in the middle of the sleep for unknown reasons, urination. It takes few to many min to fall back asleep. risetime is around 6 am on weekdays and on weekends. does not feel refreshed on waking up.2. Daytime naps - 4 days a week3. Any prescription medications/over-the- counter medications/herbal supplements to help with sleep/wakefullness - no Sleep Environment :1. Typical sleep position - lateral supine2. Bedpartner - yes3. Is bedroom cool - yes Dark - yes Quiet - yes and comfortable - yes4. Within 4-6 hrs of bedtime do you drink alcohol - no caffeinated beverages - no smoke/eat marijuana - no smoke cigarettes - no Symptoms related to Sleep Apnea:1. Snores softly - yesWakes up frequently with.headaches - no.heartburn - no.nasal congestion - no.dry mouth - yes.snorting/choking/ gasping for air - no.grinds/clenching teeth in sleep - no Daytime symptoms:1. Excessive sleepiness - no2. Irresistable urges to fall asleep - no3. Memory loss/fogginess - no4. Lack of concentration - no5. Hyperactivity - no6. Fatigue - yes7. Drowsy driving - no8. Involved in any accidents due to drowsy driving - no Symptoms related to RLS/PLMD: yesSymptoms related to Parasomnias:1. Nightmares - no2. Sleep walking - no3. Acting out dreams - no4. Kicking/jerking of legs while sleeping - no5. Hallucinations when falling asleep/waking up - no6. Momentary complete paralysis when falling asleep or upon awakening - no7. While awake, any episodes of muscle weakness brought on by strong emotions - no Boris Burris MD [address], [place], [address], [place] [facility] 04/29/2024 12:03:01 OBGyn Episode No OBEpisode recorded.
--- OUTSIDE RECORDS SUMMARY | 2024-08-30 23:25 | XMS_ITS | Clinical Summary ---
Author Organization [facility] Address [address] [place] [address] Phone Care Team Providers Care Lead Advisor Name Role Phone Unavailable Primary Care Provider Unavailabl e Allergies Active Allergy Reactions Criticality Noted Date Comments Penicillins Anaphylaxis High 07/27/2016 Sulfa (Sulfonamide Antibiotics) Anaphylaxis High Medications rosuvastatin (CRESTOR) 10 mg tab 06/26/2016 Active levothyroxine (SYNTHROID) 88 mcg tab 06/26/2016 Active Active Problems Problem Noted Date Diagnosed Date H/O breast implant 07/28/2016 Social History Tobacco Use Types Packs/Day Years Used Date Smoking Tobacco: Never Alcohol Use Standard Drinks/Week Comments Yes 0 (1 standard drink = 0.6 oz pur e alcohol) ocassional Comments Unknown Sex and Gender Information Value Date Recorded Sex Assigned at Female Legal Sex Female 1:17 PM [facility] Gender Identity Female Sexual Orientation Straight Last Filed Vital Signs Vital Sign Reading Time Taken Comments Blood Pressure 153/79 07/27/2016 12:07 PM [facility] Pulse 67 07/27/2016 12:07 PM [facility] Temperature 36.4 C (97.5 F) 07/27/2016 12:07 PM [facility] Respiratory Rate 16 07/27/2016 12:07 PM [facility] Oxygen Saturation 95% 07/27/2016 12:07 PM [facility] Inhaled Oxygen Concentration - - Weight 68.8 kg (151 lb 9.6 oz) 07/27/2016 12:07 PM [facility] Height 170.2 cm (5' 7 ) 07/27/2016 12:07 PM [facility] Body Mass Index 23.74 07/27/2016 12:07 PM [facility] Plan of Treatment Health Maintenance Due Date Last Done Comments HIV Screening 1959 Depression Screening 1971 DTaP/Tdap/Td Vaccines (1 - Tdap) 1977 Social Determinants of Health 1977 Tobacco Screening & Cessatio n Counseling 1977 Cervical Cancer Screening 02/10/1980 Breast Cancer Screening 1999 CT Colonography 02/10/2004 Colonoscopy 02/10/2004 Colorectal Cancer Screening 02/10/2004 FIT-DNA /Cologuard (q3 years) 02/10/2004 FIT/FOBT 02/10/2004 Sigmoidoscopy 02/10/2004 Pneumococcal Vaccine: 50+ (1 of 1 - PCV) 2009 Zoster Vaccines (1 of 2) 2009 Bone Density Scan 02/10/2024 Influenza Vaccine (Season Ended) 2024 RSV Vaccines (1 - 1-dose 75+ series) 2034 Meningococcal ACWY Aged Out No longer eligible based on patient's age to complete this topic Meningococcal B Vaccine Aged Out No l onger eligible based on patient's age to complete this topic Insurance PRIOR TO [id number] [facility]
--- OUTSIDE RECORDS SUMMARY | 2024-08-30 23:25 | XMS_ITS | Clinical Summary ---
Author Organization [facility] Address [address] [place] [id number] Phone [phone] Care Team Providers Care Pararescue Craftsman Name Role Phone Pcp, No Primary Care [...] age to complete this topic Care Teams Pararescue Craftsman Relationship Specialty Start Date End Date NO PCP PCP - General 07/02/20
[2024-08-31] MEDS: SODIUM CHLORIDE 0.9% IV 1,000 ML 999 ML IV CONT (00:27)
[2024-08-31] MEDS: ONDANSETRON INJ 4 MG/2 ML VIAL IV PUSH (00:27)
[2024-08-31] MEDS: FAMOTIDINE 20 MG/2 ML VIAL IV PUSH (00:27)
--- NOTE | 2024-08-31 00:27 | ECG_ITS ---
Test Date: 2024-08-31 01:36:01 Measurements Intervals [place] Rate: 63 P: 60 OK: 135 QRS: 47 QRSD: 87 T: 34 QT: 416 QTc: 427 Interpretive Statements SINUS RHYTHM WITH OCCASIONAL SUPRAVENTRICULAR PREMATURE COMPLEXES NONSPECIFIC T-WAVE ABNORMALITY ABNORMAL ECG No previous ECG available for comparison Electronically Signed On 08-31-2024 08:10:[address] M.D.
[2024-08-31 00:28] LABS: Basophils Absolute Auto 0.1 K/mm3 (0.0-0.1); Basophils Percent Auto 0.9 % (0.2-1.2); Eosinophils Absolute Auto 0.2 K/mm3 (0-0.3); Eosinophils Percent Auto 2.3 % (0-4.4); Hematocrit 39.3 % (37.0-47.0); Hemoglobin 12.6 g/dL (12.0-15.0); Immature Granulocyte Absolute 0.03 K/mm3 (0.00-0.031); Immature Granulocyte Percent A 0.3 % (0-0.5); Lymphocytes Absolute Auto 1.66 K/mm3 (0.9-3.2); Mean Corpuscular HGB Conc 32.1 g/dl (32-36); Mean Corpuscular Hemoglobin 31.3 pg (26-34); Mean Corpuscular Volume 97.8 fl (80-100); Monocytes Absolute Auto 0.7 K/mm3 (0.1-0.6); Neutrophils Absolute Auto 6.5 K/mm3 (1.3-6.7); Neutrophils Percent Auto 70.5 % (45.5-73.1); Platelet Count Result 228 k/mm3 (150-375); Red Blood Count 4.02 M/mm3 (4.2-5.4); Red Cell Distribution Width 13.2 % (11.5-14.5); White Blood Count 9.2 K/mm3 (4.5-10.0)
--- NOTE | 2024-08-31 00:29 | ED.ABDPAIN ---
HPI - Abdominal Pain General Chief Complaint: Abdominal Pain <CT Be Last Filed: 09/01/24 10:11> Stated Complaint: RUQ pain, n/v <CT Be Last Filed: 09/01/24 10:11> Time Seen by Provider: 08/30/24 22:53 <CT Be Last Filed: 09/01/24 10:11> Source: patient <CT Be Last Filed: 09/01/24 10:11> Mode of arrival: ambulatory <CT Be Last Filed: 09/01/24 10:11> Limitations: no limitations <CT Be Last Filed: 09/01/24 10:11> History of Present Illness HPI narrative: This is a 64 year old female that presents to the ER for right upper quadrant/epigastric abdominal pain. Reports she has been getting similar pains that are becoming more frequent lately and has been told she has gallstones. Reports associated nausea, vomiting. Her symptoms have now largely resolved. Denies chest pain, shortness of breath. <CT Be Last Filed: 09/01/24 10:11> Related Data Allergies/Adverse Reactions: Allergies Allergy/AdvReac Type Severity Reaction Status Date / Time Penicillins Allergy Unknown Unknown Verified 08/31/24 04:45 Sulfa (Sulfonamide Allergy Unknown Unknown Verified 08/31/24 04:45 Antibiotics) <Deonna Nicole PA-C - Last Filed: 09/01/24 10:11> Review of Systems Review of Systems: CONSTITUTIONAL: Denies fever GASTROINTESTINAL: Reports abdominal pain, nausea, vomiting <CT Be Last Filed: 09/01/24 10:11> All systems reviewed & are unremarkable except as noted in HPI and below <CT Be Last Filed: 09/01/24 10:11> PMF Past Medical History Medical History: Medical History (Updated 09/01/24 @ 00:00 by Background Daemon) History of hypertension History of hyperlipidemia <CT Be Last Filed: 09/01/24 10:11> Social History Social History: Social History (Updated 08/31/24 @ 00:32 by Deonna Nicole PA-C) Smoking status: Never smoker <Deonna Nicole PA-C - Last Filed: 09/01/24 10:11> Exam Narrative: GENERAL: Well-appearing, well-nourished, and in no acute distress. HEAD: Normocephalic, atraumatic. EYES: EOMI. CHEST: Clear to auscultation. No respiratory distress. No wheezes rales or rhonchi HEART: Regular rate and rhythm. No murmur heard. Normal peripheral pulses. ABDOMEN: Soft, nontender, nondistended, normal active bowel sounds. EXTREMITIES: Normal range of motion. No edema. SKIN: Warm, dry, no rash. NEURO: No focal deficits. Alert and oriented x3. PSYCH: Normal mood and affect <Deonna Nicole PA-C - Last Filed: 09/01/24 10:11> Course Course Emergency Course: Patient was updated on her workup thus far. Care taken over by Dr. Lopez at shift change pending CT results <Deonna Nicole PA-C - Last Filed: 09/01/24 10:11> Vital Signs Vital signs: Vital Signs Temperature 98.2 F 08/30/24 21:42 Pulse Rate 89 08/30/24 21:42 Respiratory Rate 16 08/30/24 21:42 Blood Pressure 161/55 H 08/30/24 21:42 Pulse Oximetry 94 08/30/24 21:42 Oxygen Delivery Room Air 08/30/24 21:42 Temperature 98 F 08/30/24 22:56 Pulse Rate 82 08/31/24 04:59 Respiratory Rate 16 08/31/24 04:59 Blood Pressure 162/73 H 08/31/24 04:59 Pulse Oximetry 98 08/31/24 04:59 Oxygen Delivery Room Air 08/30/24 21:42 <Deonna Nicole PA-C - Last Filed: 09/01/24 10:11> Vital Signs Temperature 98.2 F 08/30/24 21:42 Pulse Rate 89 08/30/24 21:42 Respiratory Rate 16 08/30/24 21:42 Blood Pressure 161/55 H 08/30/24 21:42 Pulse Oximetry 94 08/30/24 21:42 Oxygen Delivery Room Air 08/30/24 21:42 Temperature 98 F 08/30/24 22:56 Pulse Rate 82 08/31/24 04:59 Respiratory Rate 16 08/31/24 04:59 Blood Pressure 162/73 H 08/31/24 04:59 Pulse Oximetry 98 08/31/24 04:59 Oxygen Delivery Room Air 08/30/24 21:42 <Radha Lopez MD - Last Filed: 08/31/24 04:55> MDM - Abdominal Pain MDM Narrative Medical decision making narrative: Patient presents emergency department for right upper quadrant abdominal pain. Reports associated nausea and vomiting. Reports history of gallstones. She is afebrile and nontoxic appearing. Her vitals are stable. Cbc without leukocytosis. Metabolic panel with mild elevation of AST. Lipase is normal. Urine without evidence of infection. Care taken over by Dr. Lopez pending CT scan results Electronic medical record was reviewed. Patient presented to the ED with complaint of abdominal pain and vomiting. Vitals [were within acceptable limits]. Physical exam revealed soft abdomen without significant tenderness. Based on the patient's history and physical exam, my differential includes but is not limited to [gastritis, gastroenteritis, cholecystitis, pancreatitis, appendicitis]. [IV access was established by nursing staff. Patient was given zofran, famotidine, IV fluids]. CBC, BMP, lipase, LFTs, bilirubin and alk phos were obtained. Labs were pertinent for no white count, minimally elevated AST, normal bilirubin. [Decision was made to obtain a CT-abdomen to evaluate for acute abdominal process. CT-abdomen per my in radiology interpretation shows multiple gallstones with some wall thickening.] On reevaluation, the patient states that they are feeling much better. There were no witnessed episodes of vomiting in the emergency department. They are not complaining of any abdominal pain. Repeat examination did not show any significant guarding or rebound. No new tenderness. I did discuss with patient that there was concern for some inflammation to the gallbladder and that she may need surgery, though she is now asymptomatic and with normal labs and she really needs to go home and has her flight tomorrow. The patient was given strict return precautions, if they are to develop any worsening abdominal pain, vomiting, fevers, they are to return to the emergency department immediately. Patient verbally acknowledges understanding these directions. [The patient was informed of the above diagnostic test findings.] They will be discharged home with prescriptions for antibiotics, nausea and pain medicine. They were advised to follow-up with general surgery in 2 days. Dietary restrictions discussed. The patient feels that this is appropriate medical decision making and verbalizes an understanding of the discharge instructions. <Deonna Nicole PA-C - Last Filed: 09/01/24 10:11> Electronic medical record was reviewed. Patient presented to the ED with complaint of [abdominal pain and vomiting]. Vitals [were within acceptable limits]. Physical exam revealed soft abdomen without significant tenderness. Based on the patient's history and physical exam, my differential includes but is not limited to [gastritis, gastroenteritis, cholecystitis, pancreatitis, appendicitis]. [IV access was established by nursing staff. Patient was given zofran, famotidine, IV fluids]. CBC, BMP, lipase, LFTs, bilirubin and alk phos were obtained. Labs were pertinent for no white count, minimally elevated AST, normal bilirubin. [Decision was made to obtain a CT-abdomen to evaluate for acute abdominal process. CT-abdomen per my in radiology interpretation shows multiple gallstones with some wall thickening.] On reevaluation, the patient states that they are feeling much better. There were no witnessed episodes of vomiting in the emergency department. They are not complaining of any abdominal pain. Repeat examination did not show any significant guarding or rebound. No new tenderness. I did discuss with patient that there was concern for some inflammation to the gallbladder and that she may need surgery, though she is now asymptomatic and with normal labs and she really needs to go home and has her flight tomorrow. The patient was given strict return precautions, if they are to develop any worsening abdominal pain, vomiting, fevers, they are to return to the emergency department immediately. Patient verbally acknowledges understanding these directions. [The patient was informed of the above diagnostic test findings.] They will be discharged home with prescriptions for antibiotics, nausea and pain medicine. They were advised to follow-up with general surgery in 2 days. Dietary restrictions discussed. The patient feels that this is appropriate medical decision making and verbalizes an understanding of the discharge instructions. <Radha Lopez MD - Last Filed: 08/31/24 04:55> Lab Data Attestation: I reviewed the patient's lab results. <Deonna Nicole PA-C - Last Filed: 09/01/24 10:11> Result diagrams: 08/31/24 00:21 08/31/24 00:21 <Deonna Nicole PA-C - Last Filed: 09/01/24 10:11> Labs: Lab Results 08/30/24 08/31/24 Range/Units 23:12 00:21 WBC 9.2 (4.5-10.0) K/mm3 RBC 4.02 L (4.2-5.4) M/mm3 Hgb 12.6 (12.0-15.0) g/dL Hct 39.3 (37.0-47.0) % MCV 97.8 (80-100) fl MCH 31.3 (26-34) pg MCHC 32.1 (32-36) g/dl RDW 13.2 (11.5-14.5) % Plt Count 228 (150-375) k/mm3 MPV 9.0 (7.4-10.4) fl Immature Gran % (Auto) 0.3 (0-0.5) % Neut % (Auto) 70.5 (45.5-73.1) % Lymph % (Auto) 18.0 L (18.3-44.2) % [place] % (Auto) 8.0 (2.6-8.5) % Eos % (Auto) 2.3 (0-4.4) % Baso % (Auto) 0.9 (0.2-1.2) % Lymph # (Auto) 1.66 (0.9-3.2) K/mm3 [place] # (Auto) 0.7 H (0.1-0.6) K/mm3 Eos # (Auto) 0.2 (0-0.3) K/mm3 Baso # (Auto) 0.1 (0.0-0.1) K/mm3 Abs Immat Gran (auto) 0.03 (0.00-0.031) K/mm3 Absolute Neuts (auto) 6.5 (1.3-6.7) K/mm3 Absolute Nucleated RBC 0.000 (0.0-0.012) K/mm3 Nucleated RBC % 0.0 (0.0-0.2) % Sodium 141 (137-145) mmol/L Potassium 3.6 (3.4-5.0) mmol/L Chloride 104 (98-107) mmol/L Carbon Dioxide 28 (22-30) mmol/L Anion Gap 9 (4-12) mmol/L BUN 22 H (7-17) mg/dL Creatinine 1.10 H (0.7-1.0) mg/dL Estim Creat Clear Calc Not Reportable Estimated GFR 50 L (59 - ) Glucose 101 (65-110) mg/dL Calcium 9.3 (8.4-10.2) mg/dL Total Bilirubin 0.5 (0.2-1.3) mg/dL AST 41 H (14-36) U/L ALT 27 (6-35) U/L Alkaline Phosphatase 30 L (38-126) U/L Total Protein 8.0 (6.3-8.2) g/dL Albumin 4.4 (3.5-5.1) g/dL Lipase 74 (23-300) U/L Urine Color Yellow (Yellow) Urine Appearance Clear (Clear) Urine pH 7.5 (5.0-9.0) Ur Specific [place] 1.012 (1.001-1.035) Urine Protein Negative (Negative) mg/dL Urine Glucose (UA) Negative (Negative) mg/dL Urine Ketones Negative (Negative) mg/dL Ur Blood (Man) Negative (Negative) Urine Nitrate Negative (Negative) Urine Bilirubin Negative (Negative) Urine Urobilinogen 0.2 (<2.0) mg/dL Leukocyte Esterase Rfl Negative (Negative) [place]/UL <Deonna Nicole PA-C - Last Filed: 09/01/24 10:11> Lab Results 08/30/24 08/31/24 Range/Units 23:12 00:21 WBC 9.2 (4.5-10.0) K/mm3 RBC 4.02 L (4.2-5.4) M/mm3 Hgb 12.6 (12.0-15.0) g/dL Hct 39.3 (37.0-47.0) % MCV 97.8 (80-100) fl MCH 31.3 (26-34) pg MCHC 32.1 (32-36) g/dl RDW 13.2 (11.5-14.5) % Plt Count 228 (150-375) k/mm3 MPV 9.0 (7.4-10.4) fl Immature Gran % (Auto) 0.3 (0-0.5) % Neut % (Auto) 70.5 (45.5-73.1) % Lymph % (Auto) 18.0 L (18.3-44.2) % [place] % (Auto) 8.0 (2.6-8.5) % Eos % (Auto) 2.3 (0-4.4) % Baso % (Auto) 0.9 (0.2-1.2) % Lymph # (Auto) 1.66 (0.9-3.2) K/mm3 [place] # (Auto) 0.7 H (0.1-0.6) K/mm3 Eos # (Auto) 0.2 (0-0.3) K/mm3 Baso # (Auto) 0.1 (0.0-0.1) K/mm3 Abs Immat Gran (auto) 0.03 (0.00-0.031) K/mm3 Absolute Neuts (auto) 6.5 (1.3-6.7) K/mm3 Absolute Nucleated RBC 0.000 (0.0-0.012) K/mm3 Nucleated RBC % 0.0 (0.0-0.2) % Sodium 141 (137-145) mmol/L Potassium 3.6 (3.4-5.0) mmol/L Chloride 104 (98-107) mmol/L Carbon Dioxide 28 (22-30) mmol/L Anion Gap 9 (4-12) mmol/L BUN 22 H (7-17) mg/dL Creatinine 1.10 H (0.7-1.0) mg/dL Estim Creat Clear Calc Not Reportable Estimated GFR 50 L (59 - ) Glucose 101 (65-110) mg/dL Calcium 9.3 (8.4-10.2) mg/dL Total Bilirubin 0.5 (0.2-1.3) mg/dL AST 41 H (14-36) U/L ALT 27 (6-35) U/L Alkaline Phosphatase 30 L (38-126) U/L Total Protein 8.0 (6.3-8.2) g/dL Albumin 4.4 (3.5-5.1) g/dL Lipase 74 (23-300) U/L Urine Color Yellow (Yellow) Urine Appearance Clear (Clear) Urine pH 7.5 (5.0-9.0) Ur Specific [place] 1.012 (1.001-1.035) Urine Protein Negative (Negative) mg/dL Urine Glucose (UA) Negative (Negative) mg/dL Urine Ketones Negative (Negative) mg/dL Ur Blood (Man) Negative (Negative) Urine Nitrate Negative (Negative) Urine Bilirubin Negative (Negative) Urine Urobilinogen 0.2 (<2.0) mg/dL Leukocyte Esterase Rfl Negative (Negative) [place] <Radha Lopez MD - Last Filed: 08/31/24 04:55> Imaging Data Radiologist's impression: ITS Impressions Abdomen/Pelvis CT 08/31/24 05:49 Impression: Cholelithiasis. Associated gallbladder wall thickening is suspicious for acute cholecystitis. Correlate clinically. Consider HIDA scan as indicated. <Deonna Nicole PA-C - Last Filed: 09/01/24 10:11> ITS Impressions Abdomen/Pelvis CT 08/31/24 05:49 Impression: Cholelithiasis. Associated gallbladder wall thickening is suspicious for acute cholecystitis. Correlate clinically. Consider HIDA scan as indicated. <Radha Lopez MD - Last Filed: 08/31/24 04:55> Critical Care Time Critical Care Time Critical Care Time: No <Deonna Nicole PA-C - Last Filed: 09/01/24 10:11> Discharge Plan Discharge Clinical Impression: Biliary colic <CT Be Last Filed: 09/01/24 10:11> Patient Disposition: Home <Deonna Nicole PA-C - Last Filed: 09/01/24 10:11> Condition: Stable <CT Be Last Filed: 09/01/24 10:11> Instructions: Cholecystitis (ED) <CT Be Last Filed: 09/01/24 10:11> Additional Instructions: When you get back to [place] tomorrow, please go see your general surgeon. Take the antibiotics as prescribed. If you start having any fevers or pain, go to the ER. Do not eat anything that has fat in it. <Deonna Nicole PA-C - Last Filed: 09/01/24 10:11> Patient Language: Salvadorean <Deonna Nicole PA-C - Last Filed: 09/01/24 10:11> Prescriptions: New ciprofloxacin HCl 500 mg tablet 500 mg PO Q12H Qty: 14 0RF metronidazole 500 mg tablet 500 mg PO Q8H 7 Days Qty: 21 0RF famotidine 20 mg tablet 20 mg PO DAILY Qty: 30 0RF ibuprofen 600 mg tablet 600 mg PO TID PRN (Reason: fever or pain) Qty: 30 0RF ondansetron 4 mg tablet,disintegrating 4 mg PO Q8H PRN (Reason: nausea and vomiting) Qty: 10 0RF <Deonna Nicole PA-C - Last Filed: 09/01/24 10:11> Follow-up/Referrals: PHYSICIAN,SENIOR [employer] SPECIALIST [Primary Care Provider] - <Deonna Nicole PA-C - Last Filed: 09/01/24 10:11>
[2024-08-31 00:32] VITALS: BP 156/70; O2SAT 100
[2024-08-31 00:36] LABS: Alanine Aminotransferase 27 U/L (6-35); Albumin Level 4.4 g/dL (3.5-5.1); Alkaline Phosphatase 30 U/L (38-126); Anion Gap 9 mmol/L (4-12); Aspartate Amino Transferase 41 U/L (14-36); Bilirubin,Total 0.5 mg/dL (0.2-1.3); Blood Urea Nitrogen 22 mg/dL (7-17); Calcium 9.3 mg/dL (8.4-10.2); Carbon Dioxide 28 mmol/L (22-30); Chloride 104 mmol/L (98-107); Estimated Glomerular Filt Rate 50; Glucose 101 mg/dL (65-110); Lipase 74 U/L (23-300); Potassium 3.6 mmol/L (3.4-5.0); Sodium 141 mmol/L (137-145)
[2024-08-31 00:42] VITALS: BP 148/64; O2SAT 95
[2024-08-31 04:59] VITALS: BP 162/73; PULSE 82; RESP 16; O2SAT 98
== END 2024-08-31 05:00 | disposition home or self-care (01) ==
PROVIDERS: Physician Assistant; Emergency Provider Emergency Medicine
DX: K80.20 Calculus of gallbladder without cholecystitis without obstruction (principal); I10 Essential (primary) hypertension; E78.5 Hyperlipidemia, unspecified; I49.1 Atrial premature depolarization; R94.31 Abnormal electrocardiogram [ECG] [EKG]
CPT/HCPCS: 36415; 74177; 80053; 81003; 83690; 85025; 93005; 96361; 96374; 96375; 99284; J2405; J7030; Q9967